=== PATIENT | female | born 1990 | race Caucasian/White ===

== ENCOUNTER 2017-05-02 22:18 | Emergency (ER) | payer OTHER ==
[~2017-05-02] VITALS: Ht 172.7 cm; Wt 64.4 kg
[2017-05-02 23:48] LABS: ASPARTATE AMINO TRANSFERASE 13 U/L (15-37); BLOOD UREA NITROGEN 11 mg/dL (7-18)
[2017-05-03 01:08] LABS: PATH.CAST-FLAG NOT PRESENT; SPERM-FLAG NOT PRESENT; SRC-FLAG NOT PRESENT; XTAL-FLAG NOT PRESENT; YLC-FLAG NOT PRESENT
[2017-05-03 01:46] VITALS: BP 114/77
== END 2017-05-03 01:47 | disposition home or self-care (01) ==
LOC: ED 05-03 01:41
DX: O20.0 Threatened abortion (principal)
CPT/HCPCS: 36415; 76801; 80053; 81001; 84702; 85025; 86901

== ENCOUNTER 2017-12-07 11:09 | Observation (INO) | payer OTHER ==
[~2017-12-07] VITALS: Ht 172.7 cm; Wt 72.2 kg
[2017-12-07] MEDS ORDERED: ONDANSETRON 2MG/ML, 2ML IVPush ONE (11:30)
[2017-12-07] MEDS ORDERED: D5%-LACTATED RINGERS 1,000 ML IV SCH (11:30)
[2017-12-07] MEDS ORDERED: LACTATED RINGERS 1,000 ML IVBOLUS ONE (11:30)
[2017-12-07] MEDS ORDERED: ONDANSETRON 2MG/ML, 2ML ONE (11:40)
[2017-12-07 11:52] LABS: BASOPHILS # (AUTO) 0.01 x10^3/uL (0-0.1); BASOPHILS % (AUTO) 0 % (0-1); EOSINOPHILS # (AUTO) 0.04 x10^3/uL (0-0.4); EOSINOPHILS % (AUTO) 0 % (1-7); LYMPHOCYTES # (AUTO) 0.57 x10^3/uL (1-3.4); LYMPHOCYTES % (AUTO) 4 % (22-44); MD NO; MEAN CORPUSCULAR HEMOGLOBIN 34.2 pg (27.0-34.8); MEAN CORPUSCULAR HGB CONC 34.2 g/dL (32.4-35.8); MEAN CORPUSCULAR VOLUME 100.1 fL (80-100); MEAN PLATELET VOLUME 8.5 fL (7.4-10.4); MONOCYTES # (AUTO) 0.62 x10^3/uL (0.2-0.8); MONOCYTES % (AUTO) 4 % (2-9); NEUTROPHILS # (AUTO) 13.94 x10^3/uL (1.8-6.8); NEUTROPHILS % (AUTO) 92 % (42-75); PLATELET COUNT 166 x10^3/uL (130-400); RED BLOOD COUNT 4.12 x10^6/uL (3.82-5.3); RED CELL DISTRIBUTION WIDTH 12.9 % (9.6-15.2)
[2017-12-07 11:53] VITALS: BP 112/57
[2017-12-07 11:57] LABS: MICROSCOPIC NOT IND
[2017-12-07 12:01] LABS: ALANINE AMINOTRANSFERASE 18 U/L (12-78); ALBUMIN 3.1 g/dL (3.4-5.0); ANION GAP 8 mmol/L (5-15); CALCIUM 8.3 mg/dL (8.5-10.1); CHLORIDE 109 mmol/L (98-107); CREATININE 0.52 mg/dL (0.55-1.02)
[2017-12-07 12:02] LABS: ALKALINE PHOSPHATASE 70 U/L (45-117); BILIRUBIN,TOTAL 0.3 mg/dL (0.2-1.0); TOTAL PROTEIN 6.9 g/dL (6.4-8.2)
[2017-12-07 12:06] LABS: CULTURE INDICATED? NO
[2017-12-07] MEDS ORDERED: ACYC-114 PO (12:09)
[2017-12-07] MEDS ORDERED: METOCLOPRAMIDE 5 MG/ML, 2ML IVPush ONE (13:30)
[2017-12-07] MEDS ORDERED: METOCLOPRAMIDE 5 MG/ML, 2ML ONE (13:33)
[2017-12-07 14:22] LABS: RAPID INFLUENZA A Negative (Negative); RAPID INFLUENZA B Negative (Negative)
== END 2017-12-07 16:30 | disposition home or self-care (01) ==
LOC: LDIP 11:09
PROVIDERS: ADMIT Obstetrics & Gynecology; ATTEND Obstetrics & Gynecology
DX: O26.893 Other specified pregnancy related conditions, third trimester (principal); R19.7 Diarrhea, unspecified; O34.219 Maternal care for unspecified type scar from previous cesarean delivery; O45.93 Premature separation of placenta, unspecified, third trimester; O99.343 Other mental disorders complicating pregnancy, third trimester; O99.89 Other specified diseases and conditions complicating pregnancy, childbirth and the puerperium; Z86.32 Personal history of gestational diabetes; Z14.1 Cystic fibrosis carrier; Z3A.28 28 weeks gestation of pregnancy
CPT/HCPCS: 36415; 80053; 81003; 85025; 87400; 93005; 96361; 96374; 96375; G0378; J2405; J2765; J7120; 96360; 96366; J7121

== ENCOUNTER 2018-01-13 10:35 | Outpatient (CLI) | payer OTHER ==
[~2018-01-13] VITALS: Ht 172.7 cm; Wt 75.5 kg
[~2018-01-13 10:35] MED LIST: ACYC-114 PO
[2018-01-13 10:45] VITALS: BP 118/70
[2018-01-13 11:54] LABS: MICROSCOPIC NOT IND
[2018-01-13 12:00] LABS: AMNISURE NEGATIVE (NEGATIVE)
[2018-01-13] MEDS ORDERED: PREN1TAB60 PO (12:22)
== END 2018-01-13 12:45 | disposition home or self-care (01) ==
LOC: LDOP 10:35
PROVIDERS: ATTEND Obstetrics & Gynecology
DX: O26.893 Other specified pregnancy related conditions, third trimester (principal); R10.9 Unspecified abdominal pain; Z3A.33 33 weeks gestation of pregnancy
CPT/HCPCS: 36415; 59025; 81003; 82731; 84112; 87086; 99201; G0463

== ENCOUNTER 2018-02-22 07:27 | Inpatient (IN) | payer OTHER ==
[~2018-02-22] VITALS: Ht 172.7 cm; Wt 80.0 kg
[~2018-02-22 07:27] MED LIST changes: +PREN1TAB60 PO
[2018-02-22] MEDS ORDERED: OXYTOCIN 30U/ 0.9% NaCL 500ML 500 ML IV SCH (07:58)
[2018-02-22] MEDS ORDERED: LACTATED RINGERS 1,000 ML IV SCH ×3 (07:58→11:29)
[2018-02-22] MEDS ORDERED: METOCLOPRAMIDE 5 MG/ML, 2ML ONE (08:00)
[2018-02-22] MEDS ORDERED: OXYTOCIN 30U/ 0.9% NaCL 500ML 500 ML ONE (08:00)
[2018-02-22] MEDS ORDERED: SODIUM CITRATE/CITRIC ACID 30 ML UDC PO ONE (08:00)
[2018-02-22] MEDS ORDERED: SODIUM CITRATE/CITRIC ACID 30 ML UDC ONE ×2 (08:00→08:01)
[2018-02-22] MEDS ORDERED: LACTATED RINGERS 1,000 ML IVBOLUS ONE (08:00)
[2018-02-22] MEDS ORDERED: NEWBORN KIT ONE (08:00)
[2018-02-22] MEDS ORDERED: METOCLOPRAMIDE 5 MG/ML, 2ML IV ONE (08:00)
[2018-02-22 08:28] VITALS: BP 119/77
[2018-02-22 08:28] LABS: BASOPHILS # (AUTO) 0.03 x10^3/uL (0-0.1); BASOPHILS % (AUTO) 0 % (0-1); EOSINOPHILS # (AUTO) 0.05 x10^3/uL (0-0.4); EOSINOPHILS % (AUTO) 1 % (1-7); LYMPHOCYTES # (AUTO) 1.57 x10^3/uL (1-3.4); LYMPHOCYTES % (AUTO) 17 % (22-44); MD NO; MEAN CORPUSCULAR HEMOGLOBIN 33.8 pg (27.0-34.8); MEAN CORPUSCULAR VOLUME 99.5 fL (80-100); MEAN PLATELET VOLUME 9.2 fL (7.4-10.4); MONOCYTES # (AUTO) 0.69 x10^3/uL (0.2-0.8); MONOCYTES % (AUTO) 7 % (2-9); NEUTROPHILS % (AUTO) 75 % (42-75); PLATELET COUNT 171 x10^3/uL (130-400); RED BLOOD COUNT 3.97 x10^6/uL (3.82-5.3)
[2018-02-22] MEDS ORDERED: morphine SULFATE/PF 1 MG/ML, 10ML ONE (10:03)
[2018-02-22] MEDS ORDERED: BUPIVACAINE/PF 0.5% ONE (10:06)
[2018-02-22] MEDS ORDERED: FENTANYL PF 100 MCG/2ML ONE ×2 (10:30→10:45)
[2018-02-22] MEDS ORDERED: MIDAZOLAM 1 MG/ML, 2ML ONE (10:30)
[2018-02-22] MEDS ORDERED: PROPOFOL 10 MG/ML, 20ML ONE (10:35)
[2018-02-22] MEDS ORDERED: ONDANSETRON 2MG/ML, 2ML ONE (10:40)
[2018-02-22] MEDS ORDERED: OXYTOCIN 10 UNITS/ML, 1ML ONE (10:40)
[2018-02-22] MEDS ORDERED: DEXAMETHASONE 4 MG/ML, 1ML ONE (10:40)
[2018-02-22] MEDS ORDERED: KETOROLAC 30 MG/1 ML ONE (10:40)
[2018-02-22] MEDS: OXYTOCIN 30U/ 0.9% NaCL 500ML 500 ML IV SCH ×2 (11:29→21:29)
[2018-02-22] MEDS: LACTATED RINGERS 1,000 ML IV SCH ×2 (11:29→19:29)
[2018-02-22] MEDS ORDERED: ONDANSETRON 2MG/ML, 2ML IV PRN (11:30)
[2018-02-22] MEDS: PRENATAL VIT/IRON/FA 1 EACH TABLET PO SCH (11:30)
[2018-02-22] MEDS ORDERED: BISACODYL 10 MG SUPP PR PRN (11:30)
[2018-02-22] MEDS ORDERED: METOCLOPRAMIDE 5 MG/ML, 2ML IV PRN (11:30)
[2018-02-22] MEDS ORDERED: MISOPROSTOL 200 MCG TABLET PR PRN (11:30)
[2018-02-22] MEDS ORDERED: KETOROLAC 30 MG/1 ML IV SCH (11:30)
[2018-02-22] MEDS ORDERED: ACETAMINOPHEN 325 MG TABLET PO PRN (11:30)
[2018-02-22] MEDS ORDERED: CARBOPROST TROMETHAMINE 250 MCG/ML, 1ML IM PRN (11:30)
[2018-02-22] MEDS ORDERED: MISOPROSTOL 200 MCG TABLET SL PRN (11:30)
[2018-02-22] MEDS ORDERED: OXYcodone IR 5MG TABLET PO PRN (11:30)
[2018-02-22] MEDS ORDERED: IBUPROFEN 600 MG TABLET PO PRN (11:30)
[2018-02-22] MEDS ORDERED: METHYLERGONOVINE 0.2 MG/ML IM PRN (11:30)
[2018-02-22] MEDS ORDERED: morphine SULFATE 10 MG/ML, 1ML IVPush PRN (11:30)
[2018-02-22] MEDS ORDERED: MEPERIDINE/PF 50 MG/ML IM PRN (11:30)
[2018-02-22] MEDS ORDERED: ONDANSETRON 2MG/ML, 2ML IVPush PRN (12:00)
[2018-02-22] MEDS ORDERED: MORPHINE SULFATE 4 MG/ML, 1ML IV PRN (12:00)
[2018-02-22] MEDS ORDERED: NO SEDATIVES, TRANQUILIZERS OR ANTIEMETICS XX SCH (12:00)
[2018-02-22] MEDS ORDERED: DIPHENHYDRAMINE 50 MG/ML, 1ML IV PRN (12:00)
[2018-02-22] MEDS ORDERED: NALOXONE 0.4 MG/ML, 1ML IV PRN (12:00)
[2018-02-22] MEDS ORDERED: EPHEDRINE 50 MG/ML, 1ML IVPush PRN (12:00)
[2018-02-22 13:10] VITALS: BP 137/79
[2018-02-22 17:00] VITALS: BP 117/76
[2018-02-22] MEDS: KETOROLAC 30 MG/1 ML IVPush SCH (18:02)
[2018-02-22 18:51] LABS: MEAN CORPUSCULAR HEMOGLOBIN 34.3 pg (27.0-34.8); MEAN CORPUSCULAR HGB CONC 33.9 g/dL (32.4-35.8); MEAN PLATELET VOLUME 9.2 fL (7.4-10.4); PLATELET COUNT 143 x10^3/uL (130-400); RED BLOOD COUNT 3.63 x10^6/uL (3.82-5.3); RED CELL DISTRIBUTION WIDTH 12.7 % (9.6-15.2)
[2018-02-22 19:15] VITALS: BP 121/71
[2018-02-22 19:17] LABS: BASOPHILS % (AUTO) 0 % (0-1); EOSINOPHILS % (AUTO) 0 % (1-7); LYMPHOCYTES # (AUTO) 0.97 x10^3/uL (1-3.4); LYMPHOCYTES % (AUTO) 6 % (22-44); MD SCAN; MONOCYTES # (AUTO) 0.62 x10^3/uL (0.2-0.8); MONOCYTES % (AUTO) 4 % (2-9); NEUTROPHILS % (AUTO) 90 % (42-75)
[2018-02-22] MEDS: ACYCLOVIR 200 MG CAPSULE HOMEMEDPO SCH (21:00)
[2018-02-23] MEDS: KETOROLAC 30 MG/1 ML IVPush SCH ×2 (00:03→05:40)
[2018-02-23 00:07] VITALS: BP 126/74
[2018-02-23] MEDS: LACTATED RINGERS 1,000 ML IV SCH ×3 (03:29→19:29)
[2018-02-23 03:58] VITALS: BP 113/72
[2018-02-23] MEDS: OXYcodone/APAP 5/325MG TABLET PO PRN ×4 (05:40→18:37)
[2018-02-23] MEDS: OXYTOCIN 30U/ 0.9% NaCL 500ML 500 ML IV SCH ×2 (07:29→16:06)
[2018-02-23 07:50] VITALS: BP 119/70
[2018-02-23] MEDS: PRENATAL VIT/IRON/FA 1 EACH TABLET PO SCH (09:00)
[2018-02-23] MEDS: DOCUSATE 100 MG CAPSULE PO PRN ×2 (09:31→22:26)
[2018-02-23 12:12] VITALS: BP 132/81
[2018-02-23] MEDS: IBUPROFEN 600 MG TABLET PO PRN ×2 (12:22→18:24)
[2018-02-23] MEDS ORDERED: IBUPROFEN 600 MG TABLET PO PRN (16:14)
[2018-02-23 19:50] VITALS: BP 121/84
[2018-02-23] MEDS: ACYCLOVIR 200 MG CAPSULE HOMEMEDPO SCH (21:00)
[2018-02-24] MEDS: IBUPROFEN 600 MG TABLET PO PRN ×4 (02:25→22:57)
[2018-02-24] MEDS: LACTATED RINGERS 1,000 ML IV SCH ×3 (03:29→19:29)
[2018-02-24] MEDS: OXYTOCIN 30U/ 0.9% NaCL 500ML 500 ML IV SCH ×3 (03:29→23:29)
[2018-02-24 07:42] VITALS: BP 118/75
[2018-02-24] MEDS: PRENATAL VIT/IRON/FA 1 EACH TABLET PO SCH (07:43)
[2018-02-24] MEDS: DOCUSATE 100 MG CAPSULE PO PRN ×2 (07:44→21:53)
[2018-02-24] MEDS: OXYcodone/APAP 5/325MG TABLET PO PRN ×4 (07:44→21:53)
[2018-02-24] MEDS: ACYCLOVIR 200 MG CAPSULE HOMEMEDPO SCH (21:00)
[2018-02-24 21:45] VITALS: BP 132/78
[2018-02-25] MEDS: OXYcodone/APAP 5/325MG TABLET PO PRN ×4 (02:53→18:05)
[2018-02-25] MEDS: LACTATED RINGERS 1,000 ML IV SCH ×3 (03:22→19:29)
[2018-02-25] MEDS: IBUPROFEN 600 MG TABLET PO PRN ×3 (06:30→21:13)
[2018-02-25 06:48] VITALS: BP 138/82
[2018-02-25] MEDS: DOCUSATE 100 MG CAPSULE PO PRN ×2 (07:30→21:13)
[2018-02-25] MEDS: PRENATAL VIT/IRON/FA 1 EACH TABLET PO SCH (08:54)
[2018-02-25] MEDS: OXYTOCIN 30U/ 0.9% NaCL 500ML 500 ML IV SCH ×2 (09:29→19:29)
[2018-02-25 21:00] VITALS: BP 146/89
[2018-02-25] MEDS: ACYCLOVIR 200 MG CAPSULE HOMEMEDPO SCH (21:00)
[2018-02-26] MEDS: OXYcodone/APAP 5/325MG TABLET PO PRN ×2 (01:34→09:18)
[2018-02-26 01:57] VITALS: BP 130/85
[2018-02-26] MEDS: LACTATED RINGERS 1,000 ML IV SCH (02:50)
[2018-02-26] MEDS: OXYTOCIN 30U/ 0.9% NaCL 500ML 500 ML IV SCH (02:50)
[2018-02-26] MEDS: IBUPROFEN 600 MG TABLET PO PRN (04:29)
[2018-02-26] MEDS: DOCUSATE 100 MG CAPSULE PO PRN (07:48)
[2018-02-26] MEDS: PRENATAL VIT/IRON/FA 1 EACH TABLET PO SCH (07:48)
[2018-02-26 08:00] VITALS: BP 129/84
[2018-02-26] MEDS ORDERED: DOCU-131 PO (13:34)
[2018-02-26] MEDS ORDERED: OXYC-302 PO (13:35)
[2018-02-26] MEDS ORDERED: IBUP-1222 PO (13:35)
== END 2018-02-26 15:20 | disposition home or self-care (01) | DRG 766 ==
LOC: LDIP 07:55 → 2NW 12:56
PROVIDERS: ADMIT Obstetrics & Gynecology; ATTEND Obstetrics & Gynecology
PROC: 10D00Z1 Extraction of Products of Conception, Low, Open Approach (ICD-10-PCS; principal; 2018-02-22)
DX: O34.211 Maternal care for low transverse scar from previous cesarean delivery (principal); Z37.0 Single live birth; Z3A.39 39 weeks gestation of pregnancy
CPT/HCPCS: 36415; 85025; 86850; 86900; J1100; J1885; J2250; J2274; J2405; J2704; J3010; J3490; J2590; J2765; J7120

== ENCOUNTER 2019-09-25 11:36 | Inpatient (IN) | payer OTHER ==
[~2019-09-25] VITALS: Ht 170.2 cm; Wt 110.0 kg
[~2019-09-25 11:36] MED LIST changes: +DOCU-131 PO; +IBUP-1222 PO; +OXYC-302 PO
[2019-09-25 12:10] VITALS: BP 116/76
[2019-09-25] MEDS: LACTATED RINGERS 1,000 ML IV PRN (12:10)
[2019-09-25 12:11] LABS: BASOPHILS # (AUTO) 0.02 x10^3/uL (0-0.1); BASOPHILS % (AUTO) 0 % (0-1); EOSINOPHILS # (AUTO) 0.07 x10^3/uL (0-0.4); EOSINOPHILS % (AUTO) 1 % (1-7); LYMPHOCYTES # (AUTO) 1.48 x10^3/uL (1-3.4); LYMPHOCYTES % (AUTO) 25 % (22-44); MD NO; MEAN CORPUSCULAR HEMOGLOBIN 33.8 pg (27.0-34.8); MEAN CORPUSCULAR HGB CONC 33.9 g/dL (32.4-35.8); MEAN CORPUSCULAR VOLUME 99.8 fL (80-100); MEAN PLATELET VOLUME 8.8 fL (7.4-10.4); MONOCYTES # (AUTO) 0.41 x10^3/uL (0.2-0.8); MONOCYTES % (AUTO) 7 % (2-9); NEUTROPHILS # (AUTO) 4.03 x10^3/uL (1.8-6.8); NEUTROPHILS % (AUTO) 67 % (42-75); PLATELET COUNT 183 x10^3/uL (130-400); RED BLOOD COUNT 4.12 x10^6/uL (3.82-5.3); RED CELL DISTRIBUTION WIDTH 12.1 % (9.6-15.2)
[2019-09-25 12:19] LABS: CHLORIDE 111 mmol/L (98-107)
[2019-09-25 12:28] LABS: ALANINE AMINOTRANSFERASE 14 U/L (12-78); ALKALINE PHOSPHATASE 74 U/L (45-117); ANION GAP 6 mmol/L (5-15); BILIRUBIN,TOTAL 0.3 mg/dL (0.2-1.0); CALCIUM 8.9 mg/dL (8.5-10.1); CREATININE 0.69 mg/dL (0.55-1.02); TOTAL PROTEIN 6.9 g/dL (6.4-8.2)
[2019-09-25] MEDS ORDERED: BETAMETHASONE 6 MG/ML, 5ML IM ONE (12:32)
[2019-09-25] MEDS: BETAMETHASONE 6 MG/ML, 5ML IM SCH (12:38)
[2019-09-25 13:38] LABS: MICROSCOPIC NOT IND
[2019-09-25 13:42] LABS: CULTURE INDICATED? NO
[2019-09-25] MEDS: ACYCLOVIR 400 MG TABLET PO SCH (20:54)
[2019-09-26] MEDS: LACTATED RINGERS 1,000 ML IV PRN (07:53)
[2019-09-26] MEDS ORDERED: DOCUSATE 100 MG CAPSULE ONE (08:13)
[2019-09-26] MEDS ORDERED: PRENATAL VIT/IRON/FA 1 EACH TABLET ONE (08:13)
[2019-09-26] MEDS: PRENATAL VIT/IRON/FA 1 EACH TABLET PO SCH (08:19)
[2019-09-26] MEDS: DOCUSATE 100 MG CAPSULE PO SCH (08:19)
[2019-09-26] MEDS: ACYCLOVIR 400 MG TABLET PO SCH ×2 (08:19→21:09)
[2019-09-26 08:30] VITALS: BP 143/77
[2019-09-26 11:30] VITALS: BP 118/74
[2019-09-26] MEDS: BETAMETHASONE 6 MG/ML, 5ML IM SCH (13:08)
[2019-09-27] MEDS ORDERED: DOCUSATE 100 MG CAPSULE ONE ×2 (08:26→09:37)
[2019-09-27] MEDS ORDERED: PRENATAL VIT/IRON/FA 1 EACH TABLET ONE ×2 (08:27→09:36)
[2019-09-27] MEDS: DOCUSATE 100 MG CAPSULE PO SCH (09:00)
[2019-09-27] MEDS: PRENATAL VIT/IRON/FA 1 EACH TABLET PO SCH (09:00)
[2019-09-27] MEDS: ACYCLOVIR 400 MG TABLET PO SCH ×2 (09:00→20:59)
[2019-09-27 11:35] VITALS: BP 127/82
[2019-09-27] MEDS ORDERED: DOCO100C PO (11:39)
[2019-09-28 08:03] VITALS: BP 117/77
[2019-09-28] MEDS ORDERED: ACYCLOVIR 400 MG TABLET ONE ×2 (08:40→20:56)
[2019-09-28] MEDS: PRENATAL VIT/IRON/FA 1 EACH TABLET PO SCH (08:44)
[2019-09-28] MEDS: ACYCLOVIR 400 MG TABLET PO SCH ×2 (08:45→21:01)
[2019-09-28] MEDS: DOCUSATE 100 MG CAPSULE PO SCH (08:45)
[2019-09-28 13:41] LABS: FERNING TEST FERNING NOT PRESENT (NEGATIVE)
[2019-09-28 20:30] VITALS: BP 112/82
[2019-09-28] MEDS ORDERED: DOCUSATE 100 MG CAPSULE ONE (20:56)
[2019-09-29] MEDS ORDERED: DOCUSATE 100 MG CAPSULE ONE (08:20)
[2019-09-29] MEDS ORDERED: ACYCLOVIR 400 MG TABLET ONE ×2 (08:20→20:46)
[2019-09-29] MEDS ORDERED: PRENATAL VIT/IRON/FA 1 EACH TABLET ONE (08:20)
[2019-09-29 08:22] VITALS: BP 111/69
[2019-09-29] MEDS: DOCUSATE 100 MG CAPSULE PO SCH (08:23)
[2019-09-29] MEDS: PRENATAL VIT/IRON/FA 1 EACH TABLET PO SCH ×3 (08:23→09:00)
[2019-09-29] MEDS: ACYCLOVIR 400 MG TABLET PO SCH ×2 (08:23→21:06)
[2019-09-29 19:30] VITALS: BP 119/77
[2019-09-30] MEDS ORDERED: DOCUSATE 100 MG CAPSULE ONE (07:38)
[2019-09-30] MEDS ORDERED: PRENATAL VIT/IRON/FA 1 EACH TABLET ONE (07:38)
[2019-09-30] MEDS ORDERED: ACYCLOVIR 400 MG TABLET ONE ×2 (07:39→20:59)
[2019-09-30] MEDS: ACYCLOVIR 400 MG TABLET PO SCH ×2 (08:11→21:01)
[2019-09-30] MEDS: PRENATAL VIT/IRON/FA 1 EACH TABLET PO SCH (08:11)
[2019-09-30] MEDS: DOCUSATE 100 MG CAPSULE PO SCH (08:12)
[2019-09-30 08:13] VITALS: BP 119/76
[2019-10-01] MEDS ORDERED: ACYCLOVIR 400 MG TABLET ONE ×2 (07:40→20:50)
[2019-10-01] MEDS ORDERED: PRENATAL VIT/IRON/FA 1 EACH TABLET ONE (07:40)
[2019-10-01] MEDS ORDERED: DOCUSATE 100 MG CAPSULE ONE (07:40)
[2019-10-01] MEDS: DOCUSATE 100 MG CAPSULE PO SCH ×2 (08:11→20:56)
[2019-10-01] MEDS: PRENATAL VIT/IRON/FA 1 EACH TABLET PO SCH ×2 (08:11→09:00)
[2019-10-01] MEDS: ACYCLOVIR 400 MG TABLET PO SCH ×2 (08:11→20:52)
[2019-10-02] MEDS ORDERED: PRENATAL VIT/IRON/FA 1 EACH TABLET ONE (08:26)
[2019-10-02] MEDS ORDERED: DOCUSATE 100 MG CAPSULE ONE (08:27)
[2019-10-02] MEDS ORDERED: ACYCLOVIR 400 MG TABLET ONE ×2 (08:27→20:14)
[2019-10-02] MEDS: PRENATAL VIT/IRON/FA 1 EACH TABLET PO SCH ×3 (08:29→09:00)
[2019-10-02] MEDS: DOCUSATE 100 MG CAPSULE PO SCH (08:29)
[2019-10-02] MEDS: ACYCLOVIR 400 MG TABLET PO SCH ×2 (08:29→20:17)
[2019-10-03] MEDS ORDERED: ACYCLOVIR 400 MG TABLET ONE ×2 (07:51→21:07)
[2019-10-03] MEDS ORDERED: PRENATAL VIT/IRON/FA 1 EACH TABLET ONE (07:52)
[2019-10-03] MEDS ORDERED: DOCUSATE 100 MG CAPSULE ONE (07:52)
[2019-10-03] MEDS: PRENATAL VIT/IRON/FA 1 EACH TABLET PO SCH ×2 (09:00→09:23)
[2019-10-03] MEDS: DOCUSATE 100 MG CAPSULE PO SCH (09:23)
[2019-10-03] MEDS: ACYCLOVIR 400 MG TABLET PO SCH ×2 (09:23→21:09)
[2019-10-03 09:48] VITALS: BP 129/81
[2019-10-03 19:21] VITALS: BP 117/71
[2019-10-04 01:04] VITALS: BP 97/56
[2019-10-04 05:21] VITALS: BP 100/58
[2019-10-04] MEDS ORDERED: DOCUSATE 100 MG CAPSULE ONE (07:53)
[2019-10-04] MEDS ORDERED: ACYCLOVIR 400 MG TABLET ONE ×2 (07:54→20:42)
[2019-10-04] MEDS ORDERED: PRENATAL VIT/IRON/FA 1 EACH TABLET ONE (07:54)
[2019-10-04] MEDS: PRENATAL VIT/IRON/FA 1 EACH TABLET PO SCH ×2 (08:58→08:59)
[2019-10-04] MEDS: ACYCLOVIR 400 MG TABLET PO SCH ×2 (08:58→20:48)
[2019-10-04] MEDS: DOCUSATE 100 MG CAPSULE PO SCH (08:58)
[2019-10-05 08:00] VITALS: BP 111/67
[2019-10-05] MEDS ORDERED: DOCUSATE 100 MG CAPSULE ONE (09:15)
[2019-10-05] MEDS ORDERED: PRENATAL VIT/IRON/FA 1 EACH TABLET ONE (09:15)
[2019-10-05] MEDS ORDERED: ACYCLOVIR 400 MG TABLET ONE ×2 (09:15→20:43)
[2019-10-05] MEDS: ACYCLOVIR 400 MG TABLET PO SCH ×2 (09:16→20:55)
[2019-10-05] MEDS: DOCUSATE 100 MG CAPSULE PO SCH (09:16)
[2019-10-05] MEDS: PRENATAL VIT/IRON/FA 1 EACH TABLET PO SCH (09:16)
[2019-10-06 08:00] VITALS: BP 114/78
[2019-10-06] MEDS ORDERED: DOCUSATE 100 MG CAPSULE ONE (08:25)
[2019-10-06] MEDS ORDERED: ACYCLOVIR 400 MG TABLET ONE ×2 (08:26→20:55)
[2019-10-06] MEDS: PRENATAL VIT/IRON/FA 1 EACH TABLET PO SCH ×3 (09:00→09:07)
[2019-10-06] MEDS: ACYCLOVIR 400 MG TABLET PO SCH ×2 (09:05→20:56)
[2019-10-06] MEDS: DOCUSATE 100 MG CAPSULE PO SCH ×2 (09:05→21:00)
[2019-10-06] MEDS ORDERED: PRENATAL VIT/IRON/FA 1 EACH TABLET ONE (09:07)
[2019-10-06 09:21] LABS: BASOPHILS # (AUTO) 0.02 x10^3/uL (0-0.1); BASOPHILS % (AUTO) 0 % (0-1); EOSINOPHILS # (AUTO) 0.05 x10^3/uL (0-0.4); EOSINOPHILS % (AUTO) 1 % (1-7); LYMPHOCYTES # (AUTO) 2.09 x10^3/uL (1-3.4); LYMPHOCYTES % (AUTO) 26 % (22-44); MD NO; MEAN CORPUSCULAR HEMOGLOBIN 33.1 pg (27.0-34.8); MEAN CORPUSCULAR HGB CONC 32.9 g/dL (32.4-35.8); MEAN CORPUSCULAR VOLUME 100.6 fL (80-100); MEAN PLATELET VOLUME 8.6 fL (7.4-10.4); MONOCYTES % (AUTO) 5 % (2-9); NEUTROPHILS # (AUTO) 5.53 x10^3/uL (1.8-6.8); NEUTROPHILS % (AUTO) 68 % (42-75); PLATELET COUNT 199 x10^3/uL (130-400); RED BLOOD COUNT 4.33 x10^6/uL (3.82-5.3); RED CELL DISTRIBUTION WIDTH 12.2 % (9.6-15.2)
[2019-10-07 09:00] VITALS: BP 120/68
[2019-10-07] MEDS: PRENATAL VIT/IRON/FA 1 EACH TABLET PO SCH ×2 (09:00)
[2019-10-07] MEDS: ACYCLOVIR 400 MG TABLET PO SCH ×2 (09:00→21:01)
[2019-10-07] MEDS ORDERED: DOCUSATE 100 MG CAPSULE ONE (13:32)
[2019-10-07] MEDS ORDERED: ACYCLOVIR 400 MG TABLET ONE ×2 (13:32→20:52)
[2019-10-07] MEDS ORDERED: PRENATAL VIT/IRON/FA 1 EACH TABLET ONE (13:32)
[2019-10-07] MEDS: DOCUSATE 100 MG CAPSULE PO SCH ×2 (13:39→20:39)
[2019-10-07 20:20] VITALS: BP 114/72
[2019-10-08 07:16] LABS: GLUCOSE, FASTING 78 mg/dL (74-106)
[2019-10-08 08:00] VITALS: BP 130/65
[2019-10-08] MEDS ORDERED: PRENATAL VIT/IRON/FA 1 EACH TABLET ONE (09:10)
[2019-10-08] MEDS ORDERED: ACYCLOVIR 400 MG TABLET ONE ×2 (09:11→21:40)
[2019-10-08] MEDS ORDERED: DOCUSATE 100 MG CAPSULE ONE ×2 (09:11→20:39)
[2019-10-08] MEDS: PRENATAL VIT/IRON/FA 1 EACH TABLET PO SCH (10:43)
[2019-10-08] MEDS: ACYCLOVIR 400 MG TABLET PO SCH (10:43)
[2019-10-08] MEDS: DOCUSATE 100 MG CAPSULE PO SCH (10:43)
[2019-10-08] MEDS ORDERED: ACETAMINOPHEN 325 MG TABLET ONE (17:33)
[2019-10-08] MEDS: ACETAMINOPHEN 650 MG SUPP PR PRN (17:38)
[2019-10-09] MEDS ORDERED: DOCUSATE 100 MG CAPSULE ONE (08:50)
[2019-10-09] MEDS ORDERED: ACYCLOVIR 400 MG TABLET ONE ×2 (08:50→20:41)
[2019-10-09] MEDS ORDERED: PRENATAL VIT/IRON/FA 1 EACH TABLET ONE (08:50)
[2019-10-09] MEDS: PRENATAL VIT/IRON/FA 1 EACH TABLET PO SCH ×3 (09:00→09:08)
[2019-10-09] MEDS: ACYCLOVIR 400 MG TABLET PO SCH ×3 (09:00→20:51)
[2019-10-09] MEDS: DOCUSATE 100 MG CAPSULE PO SCH (09:08)
[2019-10-09 19:25] VITALS: BP 134/91
[2019-10-10] MEDS ORDERED: DOCUSATE 100 MG CAPSULE ONE (08:58)
[2019-10-10] MEDS ORDERED: PRENATAL VIT/IRON/FA 1 EACH TABLET ONE (08:58)
[2019-10-10] MEDS ORDERED: ACYCLOVIR 400 MG TABLET ONE ×2 (08:59→20:38)
[2019-10-10] MEDS: ACYCLOVIR 400 MG TABLET PO SCH ×2 (09:13→20:51)
[2019-10-10] MEDS: PRENATAL VIT/IRON/FA 1 EACH TABLET PO SCH (09:13)
[2019-10-10] MEDS: DOCUSATE 100 MG CAPSULE PO SCH (09:14)
[2019-10-10 19:15] VITALS: BP 125/76
[2019-10-11] MEDS ORDERED: PRENATAL VIT/IRON/FA 1 EACH TABLET ONE (09:05)
[2019-10-11] MEDS ORDERED: ACYCLOVIR 400 MG TABLET ONE ×2 (09:05→20:45)
[2019-10-11] MEDS: PRENATAL VIT/IRON/FA 1 EACH TABLET PO SCH (09:08)
[2019-10-11] MEDS: ACYCLOVIR 400 MG TABLET PO SCH ×2 (09:08→20:47)
[2019-10-11] MEDS ORDERED: DOCUSATE 100 MG CAPSULE ONE ×2 (09:09→20:45)
[2019-10-11] MEDS: DOCUSATE 100 MG CAPSULE PO SCH ×2 (09:11→23:29)
[2019-10-11 20:00] VITALS: BP 142/78
[2019-10-11 20:22] VITALS: BP 119/80
[2019-10-12] MEDS ORDERED: CALCIUM CARBONATE 500 MG TAB.CHEW ONE (04:36)
[2019-10-12] MEDS: CALCIUM CARBONATE 500 MG TAB.CHEW PO PRN (04:43)
[2019-10-12] MEDS ORDERED: CALCIUM CARBONATE 500 MG TABLET PO PRN (05:00)
[2019-10-12 07:40] VITALS: BP 109/68
[2019-10-12] MEDS ORDERED: DOCUSATE 100 MG CAPSULE ONE (09:04)
[2019-10-12] MEDS ORDERED: PRENATAL VIT/IRON/FA 1 EACH TABLET ONE (09:04)
[2019-10-12] MEDS ORDERED: ACYCLOVIR 400 MG TABLET ONE ×2 (09:05→20:03)
[2019-10-12] MEDS: DOCUSATE 100 MG CAPSULE PO SCH (09:08)
[2019-10-12] MEDS: ACYCLOVIR 400 MG TABLET PO SCH ×2 (09:09→21:08)
[2019-10-12] MEDS: PRENATAL VIT/IRON/FA 1 EACH TABLET PO SCH (09:09)
[2019-10-12 12:00] VITALS: BP 114/72
[2019-10-12 19:53] VITALS: BP 115/74
[2019-10-13 08:23] VITALS: BP 117/77
[2019-10-13] MEDS ORDERED: PRENATAL VIT/IRON/FA 1 EACH TABLET ONE (10:13)
[2019-10-13] MEDS ORDERED: ACYCLOVIR 400 MG TABLET ONE ×2 (10:14→21:09)
[2019-10-13] MEDS ORDERED: DOCUSATE 100 MG CAPSULE ONE (10:14)
[2019-10-13] MEDS: DOCUSATE 100 MG CAPSULE PO SCH (10:16)
[2019-10-13] MEDS: ACYCLOVIR 400 MG TABLET PO SCH ×2 (10:16→21:11)
[2019-10-13] MEDS: PRENATAL VIT/IRON/FA 1 EACH TABLET PO SCH (10:16)
[2019-10-13 19:25] VITALS: BP 134/81
[2019-10-14] MEDS ORDERED: DOCUSATE 100 MG CAPSULE ONE ×2 (08:53→20:56)
[2019-10-14] MEDS ORDERED: PRENATAL VIT/IRON/FA 1 EACH TABLET ONE (08:53)
[2019-10-14] MEDS ORDERED: ACYCLOVIR 400 MG TABLET ONE ×2 (08:54→20:56)
[2019-10-14] MEDS: PRENATAL VIT/IRON/FA 1 EACH TABLET PO SCH (08:57)
[2019-10-14] MEDS: ACYCLOVIR 400 MG TABLET PO SCH ×2 (08:57→20:57)
[2019-10-14] MEDS: DOCUSATE 100 MG CAPSULE PO SCH ×2 (08:57→20:57)
[2019-10-15] MEDS ORDERED: PRENATAL VIT/IRON/FA 1 EACH TABLET ONE (08:46)
[2019-10-15] MEDS ORDERED: DOCUSATE 100 MG CAPSULE ONE ×2 (08:46→20:56)
[2019-10-15] MEDS ORDERED: ACYCLOVIR 400 MG TABLET ONE ×2 (08:47→20:56)
[2019-10-15 08:55] VITALS: BP 106/71
[2019-10-15] MEDS: ACYCLOVIR 400 MG TABLET PO SCH ×2 (09:00→21:12)
[2019-10-15] MEDS: PRENATAL VIT/IRON/FA 1 EACH TABLET PO SCH (09:00)
[2019-10-15 21:14] VITALS: BP 125/86
[2019-10-16] MEDS ORDERED: DOCUSATE 100 MG CAPSULE ONE (08:30)
[2019-10-16] MEDS ORDERED: ACYCLOVIR 400 MG TABLET ONE ×2 (08:30→20:52)
[2019-10-16] MEDS ORDERED: PRENATAL VIT/IRON/FA 1 EACH TABLET ONE (08:30)
[2019-10-16] MEDS: PRENATAL VIT/IRON/FA 1 EACH TABLET PO SCH (08:35)
[2019-10-16 08:43] VITALS: BP 117/73
[2019-10-16] MEDS: DOCUSATE 100 MG CAPSULE PO SCH (09:00)
[2019-10-16 20:02] VITALS: BP 128/85
[2019-10-16] MEDS: ACYCLOVIR 400 MG TABLET PO SCH ×2 (20:56→21:00)
[2019-10-17] MEDS ORDERED: PRENATAL VIT/IRON/FA 1 EACH TABLET ONE (08:54)
[2019-10-17] MEDS ORDERED: DOCUSATE 100 MG CAPSULE ONE (08:54)
[2019-10-17] MEDS ORDERED: ACYCLOVIR 400 MG TABLET ONE ×2 (08:54→20:54)
[2019-10-17] MEDS: ACYCLOVIR 400 MG TABLET PO SCH ×2 (08:57→20:56)
[2019-10-17] MEDS: DOCUSATE 100 MG CAPSULE PO SCH (09:00)
[2019-10-17] MEDS: PRENATAL VIT/IRON/FA 1 EACH TABLET PO SCH ×2 (09:00→09:04)
[2019-10-17 09:05] VITALS: BP 126/72
[2019-10-17 19:57] VITALS: BP 128/78
[2019-10-18] MEDS ORDERED: PRENATAL VIT/IRON/FA 1 EACH TABLET ONE (07:58)
[2019-10-18] MEDS ORDERED: ACYCLOVIR 400 MG TABLET ONE ×2 (07:58→20:43)
[2019-10-18 08:30] VITALS: BP 115/70
[2019-10-18] MEDS: PRENATAL VIT/IRON/FA 1 EACH TABLET PO SCH (08:44)
[2019-10-18] MEDS: ACYCLOVIR 400 MG TABLET PO SCH ×2 (08:45→20:44)
[2019-10-18] MEDS: DOCUSATE 100 MG CAPSULE PO SCH (09:00)
[2019-10-18] MEDS ORDERED: ACETAMINOPHEN 325 MG TABLET ONE (15:02)
[2019-10-18] MEDS: ACETAMINOPHEN 650 MG SUPP PR PRN (15:04)
[2019-10-18 15:30] LABS: BASOPHILS # (AUTO) 0.04 x10^3/uL (0-0.1); BASOPHILS % (AUTO) 1 % (0-1); EOSINOPHILS % (AUTO) 1 % (1-7); LYMPHOCYTES # (AUTO) 2.45 x10^3/uL (1-3.4); LYMPHOCYTES % (AUTO) 31 % (22-44); MD NO; MEAN CORPUSCULAR HEMOGLOBIN 34.3 pg (27.0-34.8); MEAN CORPUSCULAR HGB CONC 33.6 g/dL (32.4-35.8); MEAN CORPUSCULAR VOLUME 101.9 fL (80-100); MONOCYTES # (AUTO) 0.54 x10^3/uL (0.2-0.8); MONOCYTES % (AUTO) 7 % (2-9); NEUTROPHILS # (AUTO) 4.79 x10^3/uL (1.8-6.8); NEUTROPHILS % (AUTO) 61 % (42-75); PLATELET COUNT 162 x10^3/uL (130-400); RED BLOOD COUNT 4.19 x10^6/uL (3.82-5.3); RED CELL DISTRIBUTION WIDTH 13.1 % (9.6-15.2)
[2019-10-18] MEDS ORDERED: MAALOX/HYOSCYAMINE/LIDOCAINE 45 ML BTL PO ONE (15:30)
[2019-10-18 15:40] LABS: ALANINE AMINOTRANSFERASE 19 U/L (12-78); ALBUMIN 2.9 g/dL (3.4-5.0); ANION GAP 4 mmol/L (5-15); CALCIUM 9.1 mg/dL (8.5-10.1); CHLORIDE 107 mmol/L (98-107); CREATININE 0.69 mg/dL (0.55-1.02)
[2019-10-18 15:41] LABS: BILIRUBIN, DIRECT < 0.1 mg/dL (0.1-0.2)
[2019-10-18 15:47] LABS: ALKALINE PHOSPHATASE 89 U/L (45-117); BILIRUBIN,TOTAL 0.2 mg/dL (0.2-1.0)
[2019-10-18 16:14] LABS: MICROSCOPIC NOT IND
[2019-10-18 16:35] LABS: PROTEIN/CREATININE RATIO,URINE < 287 (0-200); TOTAL PROTEIN,URINE RANDOM < 5 mg/dL (0-12)
[2019-10-19] MEDS ORDERED: DOCUSATE 100 MG CAPSULE ONE (07:41)
[2019-10-19] MEDS ORDERED: ACYCLOVIR 400 MG TABLET ONE ×2 (07:41→21:07)
[2019-10-19] MEDS ORDERED: PRENATAL VIT/IRON/FA 1 EACH TABLET ONE (07:41)
[2019-10-19] MEDS: PRENATAL VIT/IRON/FA 1 EACH TABLET PO SCH (07:44)
[2019-10-19] MEDS: ACYCLOVIR 400 MG TABLET PO SCH ×2 (07:45→21:15)
[2019-10-19] MEDS: DOCUSATE 100 MG CAPSULE PO SCH (08:21)
[2019-10-19 19:53] VITALS: BP 141/83
[2019-10-20] MEDS ORDERED: ACYCLOVIR 400 MG TABLET ONE ×2 (08:53→20:57)
[2019-10-20] MEDS ORDERED: PRENATAL VIT/IRON/FA 1 EACH TABLET ONE (08:53)
[2019-10-20] MEDS: ACYCLOVIR 400 MG TABLET PO SCH ×2 (08:56→21:00)
[2019-10-20] MEDS: PRENATAL VIT/IRON/FA 1 EACH TABLET PO SCH (08:56)
[2019-10-20 09:00] VITALS: BP 135/74
[2019-10-20] MEDS: DOCUSATE 100 MG CAPSULE PO SCH (09:00)
[2019-10-20 13:30] VITALS: BP 126/81
[2019-10-20 19:58] VITALS: BP 125/80
[2019-10-21 06:20] LABS: BASOPHILS # (AUTO) 0.08 x10^3/uL (0-0.1); BASOPHILS % (AUTO) 1 % (0-1); EOSINOPHILS # (AUTO) 0.17 x10^3/uL (0-0.4); EOSINOPHILS % (AUTO) 2 % (1-7); LYMPHOCYTES # (AUTO) 2.33 x10^3/uL (1-3.4); LYMPHOCYTES % (AUTO) 28 % (22-44); MD NO; MEAN CORPUSCULAR HEMOGLOBIN 34.2 pg (27.0-34.8); MEAN CORPUSCULAR HGB CONC 33.8 g/dL (32.4-35.8); MEAN CORPUSCULAR VOLUME 101.2 fL (80-100); MEAN PLATELET VOLUME 9.4 fL (7.4-10.4); MONOCYTES # (AUTO) 0.48 x10^3/uL (0.2-0.8); MONOCYTES % (AUTO) 6 % (2-9); NEUTROPHILS # (AUTO) 5.16 x10^3/uL (1.8-6.8); NEUTROPHILS % (AUTO) 63 % (42-75); PLATELET COUNT 159 x10^3/uL (130-400); RED BLOOD COUNT 4.08 x10^6/uL (3.82-5.3); RED CELL DISTRIBUTION WIDTH 12.7 % (9.6-15.2)
[2019-10-21 06:32] LABS: CHLORIDE 108 mmol/L (98-107)
[2019-10-21 06:41] LABS: ALANINE AMINOTRANSFERASE 24 U/L (12-78); ALBUMIN 2.8 g/dL (3.4-5.0); ALKALINE PHOSPHATASE 78 U/L (45-117); BILIRUBIN,TOTAL 0.2 mg/dL (0.2-1.0); CALCIUM 8.5 mg/dL (8.5-10.1); CREATININE 0.67 mg/dL (0.55-1.02); TOTAL PROTEIN 6.5 g/dL (6.4-8.2)
[2019-10-21 06:48] LABS: ANION GAP 6 mmol/L (5-15)
[2019-10-21] MEDS: DOCUSATE 100 MG CAPSULE PO SCH (09:00)
[2019-10-21 09:30] VITALS: BP 101/61
[2019-10-21] MEDS ORDERED: ACYCLOVIR 400 MG TABLET ONE ×2 (10:00→21:21)
[2019-10-21] MEDS ORDERED: PRENATAL VIT/IRON/FA 1 EACH TABLET ONE (10:00)
[2019-10-21] MEDS: PRENATAL VIT/IRON/FA 1 EACH TABLET PO SCH (10:04)
[2019-10-21] MEDS: ACYCLOVIR 400 MG TABLET PO SCH ×2 (10:04→21:23)
[2019-10-21] MEDS ORDERED: CALCIUM CARBONATE 500 MG TAB.CHEW ONE (14:20)
[2019-10-21] MEDS: CALCIUM CARBONATE 500 MG TAB.CHEW PO PRN (14:21)
[2019-10-22 09:00] VITALS: BP 108/70
[2019-10-22] MEDS ORDERED: PRENATAL VIT/IRON/FA 1 EACH TABLET ONE (10:07)
[2019-10-22] MEDS ORDERED: ACYCLOVIR 400 MG TABLET ONE ×2 (10:07→21:05)
[2019-10-22] MEDS: PRENATAL VIT/IRON/FA 1 EACH TABLET PO SCH (10:11)
[2019-10-22] MEDS: ACYCLOVIR 400 MG TABLET PO SCH ×2 (10:11→21:06)
[2019-10-22 15:00] VITALS: BP 109/69
[2019-10-22 19:24] VITALS: BP 111/73
[2019-10-22] MEDS: DOCUSATE 100 MG CAPSULE PO SCH (21:00)
[2019-10-23] MEDS: DOCUSATE 100 MG CAPSULE PO SCH (09:00)
[2019-10-23] MEDS ORDERED: PRENATAL VIT/IRON/FA 1 EACH TABLET ONE (09:14)
[2019-10-23] MEDS ORDERED: ACYCLOVIR 400 MG TABLET ONE ×2 (09:14→20:58)
[2019-10-23] MEDS: ACYCLOVIR 400 MG TABLET PO SCH ×2 (09:24→21:00)
[2019-10-23] MEDS: PRENATAL VIT/IRON/FA 1 EACH TABLET PO SCH (09:24)
[2019-10-24 06:10] LABS: BASOPHILS # (AUTO) 0.03 x10^3/uL (0-0.1); BASOPHILS % (AUTO) 0 % (0-1); EOSINOPHILS # (AUTO) 0.16 x10^3/uL (0-0.4); EOSINOPHILS % (AUTO) 2 % (1-7); LYMPHOCYTES # (AUTO) 2.04 x10^3/uL (1-3.4); LYMPHOCYTES % (AUTO) 27 % (22-44); MD NO; MEAN CORPUSCULAR HEMOGLOBIN 33.9 pg (27.0-34.8); MEAN CORPUSCULAR HGB CONC 33.9 g/dL (32.4-35.8); MEAN PLATELET VOLUME 8.8 fL (7.4-10.4); MONOCYTES # (AUTO) 0.48 x10^3/uL (0.2-0.8); MONOCYTES % (AUTO) 6 % (2-9); NEUTROPHILS % (AUTO) 64 % (42-75); PLATELET COUNT 161 x10^3/uL (130-400); RED BLOOD COUNT 4.06 x10^6/uL (3.82-5.3); RED CELL DISTRIBUTION WIDTH 12.9 % (9.6-15.2)
[2019-10-24 06:19] LABS: CHLORIDE 107 mmol/L (98-107)
[2019-10-24 06:27] LABS: ALANINE AMINOTRANSFERASE 18 U/L (12-78); ALBUMIN 2.7 g/dL (3.4-5.0); ALKALINE PHOSPHATASE 79 U/L (45-117); ANION GAP 5 mmol/L (5-15); BILIRUBIN,TOTAL 0.5 mg/dL (0.2-1.0); CALCIUM 8.5 mg/dL (8.5-10.1); CREATININE 0.53 mg/dL (0.55-1.02); TOTAL PROTEIN 6.6 g/dL (6.4-8.2)
[2019-10-24] MEDS ORDERED: PRENATAL VIT/IRON/FA 1 EACH TABLET ONE (08:56)
[2019-10-24] MEDS ORDERED: ACYCLOVIR 400 MG TABLET ONE ×2 (08:58→20:51)
[2019-10-24] MEDS: PRENATAL VIT/IRON/FA 1 EACH TABLET PO SCH (08:59)
[2019-10-24] MEDS: ACYCLOVIR 400 MG TABLET PO SCH ×2 (08:59→20:53)
[2019-10-24] MEDS: DOCUSATE 100 MG CAPSULE PO SCH (09:00)
[2019-10-25] MEDS ORDERED: PRENATAL VIT/IRON/FA 1 EACH TABLET ONE (07:59)
[2019-10-25] MEDS ORDERED: ACYCLOVIR 400 MG TABLET ONE ×2 (08:00→21:15)
[2019-10-25] MEDS: DOCUSATE 100 MG CAPSULE PO SCH (09:00)
[2019-10-25] MEDS ORDERED: MISOPROSTOL 200 MCG TABLET ONE (09:05)
[2019-10-25] MEDS ORDERED: LIDOCAINE 1%, 20ML ONE (09:05)
[2019-10-25 10:30] VITALS: BP 119/72
[2019-10-25] MEDS: ACYCLOVIR 400 MG TABLET PO SCH ×2 (10:30→21:18)
[2019-10-25] MEDS: PRENATAL VIT/IRON/FA 1 EACH TABLET PO SCH (10:30)
[2019-10-25 19:00] VITALS: BP 112/64
[2019-10-25] MEDS ORDERED: CALCIUM CARBONATE 500 MG TAB.CHEW ONE (21:17)
[2019-10-25] MEDS: CALCIUM CARBONATE 500 MG TAB.CHEW PO PRN (21:18)
[2019-10-26] MEDS ORDERED: PRENATAL VIT/IRON/FA 1 EACH TABLET ONE (08:56)
[2019-10-26] MEDS ORDERED: ACYCLOVIR 400 MG TABLET ONE ×2 (08:56→21:03)
[2019-10-26] MEDS: DOCUSATE 100 MG CAPSULE PO SCH (08:57)
[2019-10-26] MEDS: ACYCLOVIR 400 MG TABLET PO SCH ×2 (09:00→21:05)
[2019-10-26] MEDS: PRENATAL VIT/IRON/FA 1 EACH TABLET PO SCH (09:00)
[2019-10-26] MEDS ORDERED: ACETAMINOPHEN 325 MG TABLET ONE (13:59)
[2019-10-26] MEDS: ACETAMINOPHEN 650 MG SUPP PR PRN (14:01)
[2019-10-27 05:35] LABS: BASOPHILS # (AUTO) 0.03 x10^3/uL (0-0.1); BASOPHILS % (AUTO) 0 % (0-1); EOSINOPHILS # (AUTO) 0.22 x10^3/uL (0-0.4); EOSINOPHILS % (AUTO) 3 % (1-7); LYMPHOCYTES # (AUTO) 2.42 x10^3/uL (1-3.4); LYMPHOCYTES % (AUTO) 30 % (22-44); MD NO; MEAN CORPUSCULAR HEMOGLOBIN 33.7 pg (27.0-34.8); MEAN CORPUSCULAR HGB CONC 33.1 g/dL (32.4-35.8); MEAN PLATELET VOLUME 9.1 fL (7.4-10.4); MONOCYTES # (AUTO) 0.64 x10^3/uL (0.2-0.8); MONOCYTES % (AUTO) 8 % (2-9); NEUTROPHILS # (AUTO) 4.87 x10^3/uL (1.8-6.8); NEUTROPHILS % (AUTO) 60 % (42-75); PLATELET COUNT 144 x10^3/uL (130-400); RED BLOOD COUNT 4.02 x10^6/uL (3.82-5.3); RED CELL DISTRIBUTION WIDTH 12.7 % (9.6-15.2)
[2019-10-27 05:45] LABS: ALBUMIN 2.7 g/dL (3.4-5.0); CALCIUM 8.5 mg/dL (8.5-10.1); CHLORIDE 109 mmol/L (98-107)
[2019-10-27 05:50] LABS: ALANINE AMINOTRANSFERASE 23 U/L (12-78); ALKALINE PHOSPHATASE 81 U/L (45-117); ANION GAP 5 mmol/L (5-15); BILIRUBIN,TOTAL 0.2 mg/dL (0.2-1.0); CREATININE 0.62 mg/dL (0.55-1.02); TOTAL PROTEIN 6.2 g/dL (6.4-8.2)
[2019-10-27] MEDS ORDERED: ACYCLOVIR 400 MG TABLET ONE ×2 (08:55→20:54)
[2019-10-27] MEDS ORDERED: DOCUSATE 100 MG CAPSULE ONE (08:55)
[2019-10-27] MEDS ORDERED: PRENATAL VIT/IRON/FA 1 EACH TABLET ONE (08:55)
[2019-10-27] MEDS: PRENATAL VIT/IRON/FA 1 EACH TABLET PO SCH (09:06)
[2019-10-27] MEDS: ACYCLOVIR 400 MG TABLET PO SCH ×2 (09:06→20:55)
[2019-10-27 16:01] LABS: PROTEIN/CREATININE RATIO,URINE < 331 (0-200); TOTAL PROTEIN,URINE RANDOM < 5 mg/dL (0-12)
[2019-10-27] MEDS: DOCUSATE 100 MG CAPSULE PO SCH (21:00)
[2019-10-28] MEDS ORDERED: PRENATAL VIT/IRON/FA 1 EACH TABLET ONE (08:02)
[2019-10-28] MEDS ORDERED: ACYCLOVIR 400 MG TABLET ONE ×2 (08:03→21:01)
[2019-10-28] MEDS: PRENATAL VIT/IRON/FA 1 EACH TABLET PO SCH (08:05)
[2019-10-28] MEDS: ACYCLOVIR 400 MG TABLET PO SCH ×2 (08:05→21:03)
[2019-10-28] MEDS: DOCUSATE 100 MG CAPSULE PO SCH (09:00)
[2019-10-28 18:55] LABS: TOTAL VOLUME 24HRS,URINE 4300 mL
[2019-10-28 19:08] LABS: TOTAL PROTEIN 24HR,URINE 215 mg/24hrs (0-149)
[2019-10-29 08:09] VITALS: BP 113/79
[2019-10-29] MEDS ORDERED: PRENATAL VIT/IRON/FA 1 EACH TABLET ONE (08:18)
[2019-10-29] MEDS ORDERED: ACYCLOVIR 400 MG TABLET ONE ×2 (08:19→20:50)
[2019-10-29] MEDS: DOCUSATE 100 MG CAPSULE PO SCH (09:00)
[2019-10-29] MEDS: PRENATAL VIT/IRON/FA 1 EACH TABLET PO SCH (09:00)
[2019-10-29] MEDS: ACYCLOVIR 400 MG TABLET PO SCH ×2 (20:52→21:00)
[2019-10-30 06:41] LABS: BASOPHILS # (AUTO) 0.03 x10^3/uL (0-0.1); BASOPHILS % (AUTO) 0 % (0-1); EOSINOPHILS # (AUTO) 0.13 x10^3/uL (0-0.4); EOSINOPHILS % (AUTO) 2 % (1-7); LYMPHOCYTES % (AUTO) 24 % (22-44); MD NO; MEAN CORPUSCULAR HEMOGLOBIN 33.8 pg (27.0-34.8); MEAN CORPUSCULAR HGB CONC 33.8 g/dL (32.4-35.8); MEAN CORPUSCULAR VOLUME 99.8 fL (80-100); MEAN PLATELET VOLUME 8.7 fL (7.4-10.4); MONOCYTES # (AUTO) 0.48 x10^3/uL (0.2-0.8); MONOCYTES % (AUTO) 6 % (2-9); NEUTROPHILS # (AUTO) 5.31 x10^3/uL (1.8-6.8); NEUTROPHILS % (AUTO) 68 % (42-75); PLATELET COUNT 154 x10^3/uL (130-400); RED BLOOD COUNT 4.13 x10^6/uL (3.82-5.3)
[2019-10-30 06:52] LABS: CHLORIDE 106 mmol/L (98-107)
[2019-10-30 06:59] LABS: ALANINE AMINOTRANSFERASE 39 U/L (12-78); ALBUMIN 2.8 g/dL (3.4-5.0); ALKALINE PHOSPHATASE 83 U/L (45-117); ANION GAP 8 mmol/L (5-15); BILIRUBIN,TOTAL 0.2 mg/dL (0.2-1.0); CALCIUM 8.5 mg/dL (8.5-10.1); CREATININE 0.61 mg/dL (0.55-1.02); TOTAL PROTEIN 6.6 g/dL (6.4-8.2)
[2019-10-30] MEDS: DOCUSATE 100 MG CAPSULE PO SCH (09:00)
[2019-10-30] MEDS ORDERED: PRENATAL VIT/IRON/FA 1 EACH TABLET ONE (09:20)
[2019-10-30] MEDS ORDERED: ACYCLOVIR 400 MG TABLET ONE ×2 (09:21→21:12)
[2019-10-30] MEDS: PRENATAL VIT/IRON/FA 1 EACH TABLET PO SCH (09:25)
[2019-10-30] MEDS: ACYCLOVIR 400 MG TABLET PO SCH ×2 (09:25→21:15)
[2019-10-30 09:42] LABS: MICROSCOPIC NOT IND
[2019-10-30 21:34] VITALS: BP 116/72
[2019-10-31] MEDS ORDERED: DIPHENHYDRAMINE 25 MG CAPSULE ONE (02:31)
[2019-10-31] MEDS: DIPHENHYDRAMINE 25 MG CAPSULE PO PRN (02:33)
[2019-10-31] MEDS ORDERED: ACYCLOVIR 400 MG TABLET ONE ×2 (07:55→20:48)
[2019-10-31] MEDS ORDERED: PRENATAL VIT/IRON/FA 1 EACH TABLET ONE (07:55)
[2019-10-31] MEDS ORDERED: DOCUSATE 100 MG CAPSULE ONE (07:55)
[2019-10-31] MEDS: ACYCLOVIR 400 MG TABLET PO SCH ×2 (08:59→20:49)
[2019-10-31] MEDS: PRENATAL VIT/IRON/FA 1 EACH TABLET PO SCH (08:59)
[2019-10-31] MEDS: DOCUSATE 100 MG CAPSULE PO SCH (09:00)
[2019-10-31 10:39] VITALS: BP 122/82
[2019-10-31 17:11] LABS: CREATININE,URINE RANDOM 56.6 mg/dL
[2019-11-01] MEDS: CALCIUM CARBONATE 500 MG TAB.CHEW PO PRN (01:05)
[2019-11-01] MEDS ORDERED: CALCIUM CARBONATE 500 MG TAB.CHEW ONE (01:05)
[2019-11-01] MEDS ORDERED: ACYCLOVIR 400 MG TABLET ONE ×2 (08:48→20:59)
[2019-11-01] MEDS ORDERED: DOCUSATE 100 MG CAPSULE ONE (08:48)
[2019-11-01] MEDS ORDERED: PRENATAL VIT/IRON/FA 1 EACH TABLET ONE (08:48)
[2019-11-01] MEDS: DOCUSATE 100 MG CAPSULE PO SCH (09:04)
[2019-11-01] MEDS: PRENATAL VIT/IRON/FA 1 EACH TABLET PO SCH (09:04)
[2019-11-01] MEDS: ACYCLOVIR 400 MG TABLET PO SCH ×2 (09:05→21:04)
[2019-11-01 09:07] VITALS: BP 124/72
[2019-11-02 08:32] VITALS: BP 118/94
[2019-11-02] MEDS: DOCUSATE 100 MG CAPSULE PO SCH (09:00)
[2019-11-02] MEDS ORDERED: PRENATAL VIT/IRON/FA 1 EACH TABLET ONE (09:03)
[2019-11-02] MEDS ORDERED: ACYCLOVIR 400 MG TABLET ONE ×2 (09:03→21:07)
[2019-11-02] MEDS ORDERED: DOCUSATE 100 MG CAPSULE ONE (09:03)
[2019-11-02] MEDS: ACYCLOVIR 400 MG TABLET PO SCH ×2 (09:34→21:11)
[2019-11-02] MEDS: PRENATAL VIT/IRON/FA 1 EACH TABLET PO SCH (09:34)
[2019-11-03 08:30] VITALS: BP 114/72
[2019-11-03] MEDS: DOCUSATE 100 MG CAPSULE PO SCH (09:00)
[2019-11-03] MEDS ORDERED: PRENATAL VIT/IRON/FA 1 EACH TABLET ONE (09:02)
[2019-11-03] MEDS ORDERED: ACYCLOVIR 400 MG TABLET ONE ×2 (09:02→20:39)
[2019-11-03] MEDS: PRENATAL VIT/IRON/FA 1 EACH TABLET PO SCH (09:04)
[2019-11-03] MEDS: ACYCLOVIR 400 MG TABLET PO SCH ×2 (09:04→20:40)
[2019-11-03 13:26] LABS: ANA SCREEN POSITIVE (Negative); ANA TITER 1:40; ANTI-NUCLEAR ANTIBODY PATTERN NUCLEOLAR
[2019-11-03] MEDS ORDERED: DIPHENHYDRAMINE 25 MG CAPSULE ONE (22:02)
[2019-11-03] MEDS: DIPHENHYDRAMINE 25 MG CAPSULE PO PRN (22:04)
[2019-11-04 08:27] LABS: BASOPHILS # (AUTO) 0.04 x10^3/uL (0-0.1); BASOPHILS % (AUTO) 1 % (0-1); EOSINOPHILS % (AUTO) 1 % (1-7); LYMPHOCYTES # (AUTO) 1.92 x10^3/uL (1-3.4); LYMPHOCYTES % (AUTO) 27 % (22-44); MD NO; MEAN CORPUSCULAR HEMOGLOBIN 33.7 pg (27.0-34.8); MEAN CORPUSCULAR HGB CONC 33.5 g/dL (32.4-35.8); MEAN CORPUSCULAR VOLUME 100.5 fL (80-100); MEAN PLATELET VOLUME 8.9 fL (7.4-10.4); MONOCYTES # (AUTO) 0.44 x10^3/uL (0.2-0.8); MONOCYTES % (AUTO) 6 % (2-9); NEUTROPHILS # (AUTO) 4.64 x10^3/uL (1.8-6.8); NEUTROPHILS % (AUTO) 65 % (42-75); PLATELET COUNT 149 x10^3/uL (130-400); RED BLOOD COUNT 4.15 x10^6/uL (3.82-5.3); RED CELL DISTRIBUTION WIDTH 13.1 % (9.6-15.2)
[2019-11-04 08:40] LABS: ALANINE AMINOTRANSFERASE 27 U/L (12-78); ANION GAP 7 mmol/L (5-15); CALCIUM 8.9 mg/dL (8.5-10.1); CHLORIDE 107 mmol/L (98-107); CREATININE 0.65 mg/dL (0.55-1.02)
[2019-11-04 08:42] LABS: ALKALINE PHOSPHATASE 90 U/L (45-117); BILIRUBIN,TOTAL 0.2 mg/dL (0.2-1.0)
[2019-11-04] MEDS ORDERED: ACYCLOVIR 400 MG TABLET ONE ×2 (09:35→20:23)
[2019-11-04] MEDS ORDERED: PRENATAL VIT/IRON/FA 1 EACH TABLET ONE (09:35)
[2019-11-04] MEDS: ACYCLOVIR 400 MG TABLET PO SCH ×2 (09:42→21:01)
[2019-11-04] MEDS: PRENATAL VIT/IRON/FA 1 EACH TABLET PO SCH (09:42)
[2019-11-04 21:03] VITALS: BP 124/83
[2019-11-05] MEDS ORDERED: PRENATAL VIT/IRON/FA 1 EACH TABLET ONE (11:12)
[2019-11-05] MEDS ORDERED: ACYCLOVIR 400 MG TABLET ONE ×2 (11:12→20:48)
[2019-11-05] MEDS: PRENATAL VIT/IRON/FA 1 EACH TABLET PO SCH (11:14)
[2019-11-05] MEDS: ACYCLOVIR 400 MG TABLET PO SCH ×2 (11:14→20:50)
[2019-11-05 20:00] VITALS: BP 117/74
[2019-11-06] MEDS: DOCUSATE 100 MG CAPSULE PO SCH (09:00)
[2019-11-06] MEDS ORDERED: ACYCLOVIR 400 MG TABLET ONE ×2 (09:23→20:53)
[2019-11-06] MEDS ORDERED: PRENATAL VIT/IRON/FA 1 EACH TABLET ONE (09:23)
[2019-11-06] MEDS: PRENATAL VIT/IRON/FA 1 EACH TABLET PO SCH (09:35)
[2019-11-06] MEDS: ACYCLOVIR 400 MG TABLET PO SCH ×2 (09:35→20:54)
[2019-11-06 09:57] VITALS: BP 124/87
[2019-11-06 19:18] VITALS: BP 119/79
[2019-11-07] MEDS ORDERED: ACYCLOVIR 400 MG TABLET ONE ×2 (08:28→21:17)
[2019-11-07] MEDS ORDERED: PRENATAL VIT/IRON/FA 1 EACH TABLET ONE (08:29)
[2019-11-07] MEDS: DOCUSATE 100 MG CAPSULE PO SCH (09:00)
[2019-11-07] MEDS ORDERED: SODIUM CHLORIDE FLUSH 3ML SYRINGE IVF SCH (09:00)
[2019-11-07] MEDS: PRENATAL VIT/IRON/FA 1 EACH TABLET PO SCH (09:05)
[2019-11-07] MEDS: ACYCLOVIR 400 MG TABLET PO SCH ×2 (09:06→21:19)
[2019-11-07 09:35] VITALS: BP 120/76
[2019-11-07] MEDS ORDERED: DOCUSATE 100 MG CAPSULE PO PRN (22:00)
[2019-11-07] MEDS ORDERED: ACETAMINOPHEN 325 MG TABLET ONE (23:48)
[2019-11-07] MEDS: ACETAMINOPHEN 325 MG TABLET PO PRN (23:51)
[2019-11-08] MEDS ORDERED: ACYCLOVIR 400 MG TABLET ONE ×2 (08:23→21:12)
[2019-11-08] MEDS: ACYCLOVIR 400 MG TABLET PO SCH ×2 (08:25→21:13)
[2019-11-08] MEDS ORDERED: PRENATAL VIT/IRON/FA 1 EACH TABLET ONE (08:25)
[2019-11-08] MEDS: PRENATAL VIT/IRON/FA 1 EACH TABLET PO SCH (08:26)
[2019-11-08] MEDS ORDERED: DOCUSATE 100 MG CAPSULE PO PRN (09:00)
[2019-11-09] MEDS ORDERED: FENTANYL PF 100 MCG/2ML ONE (03:22)
[2019-11-09] MEDS ORDERED: BUPIVACAINE 0.25% ONE (03:23)
[2019-11-09] MEDS ORDERED: PRENATAL VIT/IRON/FA 1 EACH TABLET ONE (07:57)
[2019-11-09] MEDS ORDERED: ACYCLOVIR 400 MG TABLET ONE ×2 (07:57→20:14)
[2019-11-09 07:59] VITALS: BP 124/77
[2019-11-09] MEDS: ACYCLOVIR 400 MG TABLET PO SCH ×2 (08:01→20:57)
[2019-11-09] MEDS: PRENATAL VIT/IRON/FA 1 EACH TABLET PO SCH (08:01)
[2019-11-09] MEDS ORDERED: ACETAMINOPHEN 325 MG TABLET ONE (20:10)
[2019-11-09] MEDS: ACETAMINOPHEN 325 MG TABLET PO PRN (20:11)
[2019-11-09 20:12] VITALS: BP 135/88
[2019-11-10] MEDS ORDERED: PRENATAL VIT/IRON/FA 1 EACH TABLET ONE (08:10)
[2019-11-10] MEDS ORDERED: ACYCLOVIR 400 MG TABLET ONE ×2 (08:10→20:37)
[2019-11-10] MEDS: ACYCLOVIR 400 MG TABLET PO SCH ×2 (08:22→20:45)
[2019-11-10] MEDS: PRENATAL VIT/IRON/FA 1 EACH TABLET PO SCH (08:23)
[2019-11-10 08:44] VITALS: BP 128/66
[2019-11-11 05:38] LABS: BASOPHILS # (AUTO) 0.03 x10^3/uL (0-0.1); BASOPHILS % (AUTO) 0 % (0-1); EOSINOPHILS # (AUTO) 0.12 x10^3/uL (0-0.4); EOSINOPHILS % (AUTO) 2 % (1-7); LYMPHOCYTES # (AUTO) 2.59 x10^3/uL (1-3.4); LYMPHOCYTES % (AUTO) 32 % (22-44); MD NO; MEAN CORPUSCULAR HEMOGLOBIN 34.4 pg (27.0-34.8); MEAN CORPUSCULAR HGB CONC 33.4 g/dL (32.4-35.8); MEAN CORPUSCULAR VOLUME 103.1 fL (80-100); MEAN PLATELET VOLUME 9.7 fL (7.4-10.4); MONOCYTES # (AUTO) 0.52 x10^3/uL (0.2-0.8); MONOCYTES % (AUTO) 6 % (2-9); NEUTROPHILS # (AUTO) 4.79 x10^3/uL (1.8-6.8); NEUTROPHILS % (AUTO) 60 % (42-75); PLATELET COUNT 149 x10^3/uL (130-400); RED BLOOD COUNT 3.96 x10^6/uL (3.82-5.3); RED CELL DISTRIBUTION WIDTH 12.8 % (9.6-15.2)
[2019-11-11 05:49] LABS: ALANINE AMINOTRANSFERASE 21 U/L (12-78); ALBUMIN 2.8 g/dL (3.4-5.0); ANION GAP 7 mmol/L (5-15); CALCIUM 8.5 mg/dL (8.5-10.1); CHLORIDE 108 mmol/L (98-107); CREATININE 0.63 mg/dL (0.55-1.02)
[2019-11-11 05:52] LABS: ALKALINE PHOSPHATASE 81 U/L (45-117); TOTAL PROTEIN 6.6 g/dL (6.4-8.2)
[2019-11-11 05:54] LABS: BILIRUBIN,TOTAL < 0.1 mg/dL (0.2-1.0)
[2019-11-11] MEDS ORDERED: PRENATAL VIT/IRON/FA 1 EACH TABLET ONE (07:11)
[2019-11-11] MEDS ORDERED: ACYCLOVIR 400 MG TABLET ONE ×3 (07:12→21:54)
[2019-11-11] MEDS: PRENATAL VIT/IRON/FA 1 EACH TABLET PO SCH (10:04)
[2019-11-11] MEDS: ACYCLOVIR 400 MG TABLET PO SCH ×2 (10:05→21:57)
[2019-11-11 10:32] VITALS: BP 128/75
[2019-11-11 18:50] VITALS: BP 127/77
[2019-11-11] MEDS ORDERED: DIPHENHYDRAMINE 25 MG CAPSULE ONE (21:54)
[2019-11-12] MEDS: ACYCLOVIR 400 MG TABLET PO SCH ×2 (09:14→20:11)
[2019-11-12] MEDS ORDERED: PRENATAL VIT/IRON/FA 1 EACH TABLET ONE (09:22)
[2019-11-12] MEDS: PRENATAL VIT/IRON/FA 1 EACH TABLET PO SCH (09:24)
[2019-11-12] MEDS ORDERED: ACYCLOVIR 400 MG TABLET ONE (20:09)
[2019-11-12 20:12] VITALS: BP 115/79
[2019-11-13] MEDS ORDERED: PRENATAL VIT/IRON/FA 1 EACH TABLET ONE (08:51)
[2019-11-13] MEDS ORDERED: ACYCLOVIR 400 MG TABLET ONE ×2 (08:52→19:59)
[2019-11-13] MEDS: PRENATAL VIT/IRON/FA 1 EACH TABLET PO SCH (09:34)
[2019-11-13] MEDS: ACYCLOVIR 400 MG TABLET PO SCH ×2 (09:34→20:01)
[2019-11-13 19:36] VITALS: BP 124/75
[2019-11-14] MEDS ORDERED: PRENATAL VIT/IRON/FA 1 EACH TABLET ONE (09:44)
[2019-11-14] MEDS ORDERED: ACYCLOVIR 400 MG TABLET ONE ×3 (09:44→21:11)
[2019-11-14] MEDS: ACYCLOVIR 400 MG TABLET PO SCH ×2 (09:46→20:46)
[2019-11-14] MEDS: PRENATAL VIT/IRON/FA 1 EACH TABLET PO SCH (09:46)
[2019-11-14 19:33] VITALS: BP 120/75
[2019-11-14] MEDS ORDERED: DOCUSATE 100 MG CAPSULE ONE (21:11)
[2019-11-15] MEDS ORDERED: ACYCLOVIR 400 MG TABLET ONE ×2 (07:45→20:45)
[2019-11-15] MEDS ORDERED: PRENATAL VIT/IRON/FA 1 EACH TABLET ONE (07:46)
[2019-11-15] MEDS: PRENATAL VIT/IRON/FA 1 EACH TABLET PO SCH (09:10)
[2019-11-15] MEDS: ACYCLOVIR 400 MG TABLET PO SCH ×2 (09:11→20:54)
[2019-11-15 09:24] VITALS: BP 118/76
[2019-11-15 21:00] VITALS: BP 131/90
[2019-11-16] MEDS ORDERED: ACYCLOVIR 400 MG TABLET ONE ×2 (08:40→20:27)
[2019-11-16] MEDS ORDERED: PRENATAL VIT/IRON/FA 1 EACH TABLET ONE (08:40)
[2019-11-16] MEDS: ACYCLOVIR 400 MG TABLET PO SCH ×2 (08:44→20:28)
[2019-11-16] MEDS: PRENATAL VIT/IRON/FA 1 EACH TABLET PO SCH (08:44)
[2019-11-16 08:45] VITALS: BP 121/76
[2019-11-16 19:41] VITALS: BP 126/82
[2019-11-17] MEDS ORDERED: PRENATAL VIT/IRON/FA 1 EACH TABLET ONE (08:43)
[2019-11-17] MEDS ORDERED: ACYCLOVIR 400 MG TABLET ONE ×2 (08:44→20:09)
[2019-11-17] MEDS: PRENATAL VIT/IRON/FA 1 EACH TABLET PO SCH (08:47)
[2019-11-17] MEDS: ACYCLOVIR 400 MG TABLET PO SCH ×2 (08:47→20:11)
[2019-11-17 08:53] VITALS: BP 116/70
[2019-11-17 20:13] VITALS: BP 135/85
[2019-11-18 08:30] VITALS: BP 128/78
[2019-11-18 08:33] LABS: BASOPHILS # (AUTO) 0.04 x10^3/uL (0-0.1); BASOPHILS % (AUTO) 1 % (0-1); EOSINOPHILS # (AUTO) 0.11 x10^3/uL (0-0.4); EOSINOPHILS % (AUTO) 2 % (1-7); LYMPHOCYTES # (AUTO) 1.89 x10^3/uL (1-3.4); LYMPHOCYTES % (AUTO) 28 % (22-44); MD NO; MEAN CORPUSCULAR HEMOGLOBIN 33.4 pg (27.0-34.8); MEAN CORPUSCULAR HGB CONC 33.3 g/dL (32.4-35.8); MEAN CORPUSCULAR VOLUME 100.3 fL (80-100); MEAN PLATELET VOLUME 8.5 fL (7.4-10.4); MONOCYTES # (AUTO) 0.46 x10^3/uL (0.2-0.8); MONOCYTES % (AUTO) 7 % (2-9); NEUTROPHILS # (AUTO) 4.33 x10^3/uL (1.8-6.8); NEUTROPHILS % (AUTO) 63 % (42-75); PLATELET COUNT 164 x10^3/uL (130-400); RED CELL DISTRIBUTION WIDTH 13.2 % (9.6-15.2)
[2019-11-18 08:45] LABS: ALANINE AMINOTRANSFERASE 18 U/L (12-78); ALBUMIN 2.8 g/dL (3.4-5.0); ANION GAP 6 mmol/L (5-15); CALCIUM 8.1 mg/dL (8.5-10.1); CHLORIDE 108 mmol/L (98-107); CREATININE 0.67 mg/dL (0.55-1.02)
[2019-11-18 08:47] LABS: ALKALINE PHOSPHATASE 84 U/L (45-117); BILIRUBIN,TOTAL 0.2 mg/dL (0.2-1.0); TOTAL PROTEIN 6.3 g/dL (6.4-8.2)
[2019-11-18] MEDS ORDERED: PRENATAL VIT/IRON/FA 1 EACH TABLET ONE (11:01)
[2019-11-18] MEDS ORDERED: ACYCLOVIR 400 MG TABLET ONE ×2 (11:01→20:25)
[2019-11-18] MEDS: ACYCLOVIR 400 MG TABLET PO SCH ×2 (11:03→20:30)
[2019-11-18] MEDS: PRENATAL VIT/IRON/FA 1 EACH TABLET PO SCH (11:04)
[2019-11-18 19:10] VITALS: BP 131/87
[2019-11-19] MEDS ORDERED: PRENATAL VIT/IRON/FA 1 EACH TABLET ONE (08:58)
[2019-11-19] MEDS ORDERED: ACYCLOVIR 400 MG TABLET ONE ×2 (08:58→20:54)
[2019-11-19] MEDS: PRENATAL VIT/IRON/FA 1 EACH TABLET PO SCH (09:21)
[2019-11-19] MEDS: ACYCLOVIR 400 MG TABLET PO SCH ×2 (09:21→20:58)
[2019-11-19 11:22] LABS: MICROSCOPIC NOT IND
[2019-11-19 11:31] LABS: CULTURE INDICATED? NO
[2019-11-19 14:11] LABS: CLUE CELLS NONE SEEN (NONE SEEN); WET PREP WBCS FEW (FEW)
[2019-11-19] MEDS ORDERED: DIPH,PERTUSS(ACELL),TET VAC/PF NC IM-VACC ONE (20:30)
[2019-11-20] MEDS ORDERED: ACYCLOVIR 400 MG TABLET ONE ×2 (08:31→21:03)
[2019-11-20] MEDS ORDERED: PRENATAL VIT/IRON/FA 1 EACH TABLET ONE (08:31)
[2019-11-20] MEDS: ACYCLOVIR 400 MG TABLET PO SCH ×2 (08:33→21:20)
[2019-11-20] MEDS: PRENATAL VIT/IRON/FA 1 EACH TABLET PO SCH (08:33)
[2019-11-20] MEDS ORDERED: DIPH,PERTUSS(ACELL),TET VAC/PF NC IM-VACC ONE (08:40)
[2019-11-21 08:34] VITALS: BP 115/63
[2019-11-21] MEDS ORDERED: ACYCLOVIR 400 MG TABLET ONE ×2 (09:20→21:27)
[2019-11-21] MEDS ORDERED: PRENATAL VIT/IRON/FA 1 EACH TABLET ONE (09:20)
[2019-11-21] MEDS: PRENATAL VIT/IRON/FA 1 EACH TABLET PO SCH (09:22)
[2019-11-21] MEDS: ACYCLOVIR 400 MG TABLET PO SCH ×2 (09:23→21:28)
[2019-11-21 19:30] VITALS: BP 137/82
[2019-11-22 08:09] VITALS: BP 129/78
[2019-11-22] MEDS ORDERED: PRENATAL VIT/IRON/FA 1 EACH TABLET ONE (09:04)
[2019-11-22] MEDS ORDERED: ACYCLOVIR 400 MG TABLET ONE ×2 (09:05→20:08)
[2019-11-22] MEDS: ACYCLOVIR 400 MG TABLET PO SCH ×2 (09:19→20:11)
[2019-11-22] MEDS: PRENATAL VIT/IRON/FA 1 EACH TABLET PO SCH (09:19)
[2019-11-22 20:10] VITALS: BP 127/58
[2019-11-23] MEDS ORDERED: ACYCLOVIR 400 MG TABLET ONE ×2 (08:28→20:20)
[2019-11-23] MEDS ORDERED: PRENATAL VIT/IRON/FA 1 EACH TABLET ONE (08:30)
[2019-11-23 08:43] VITALS: BP 131/78
[2019-11-23] MEDS: PRENATAL VIT/IRON/FA 1 EACH TABLET PO SCH (08:43)
[2019-11-23] MEDS: ACYCLOVIR 400 MG TABLET PO SCH ×2 (08:43→20:29)
[2019-11-23 19:17] VITALS: BP 126/79
[2019-11-24] MEDS ORDERED: ACYCLOVIR 400 MG TABLET ONE ×2 (08:44→20:53)
[2019-11-24] MEDS ORDERED: PRENATAL VIT/IRON/FA 1 EACH TABLET ONE (08:44)
[2019-11-24] MEDS: PRENATAL VIT/IRON/FA 1 EACH TABLET PO SCH (08:46)
[2019-11-24] MEDS: ACYCLOVIR 400 MG TABLET PO SCH ×2 (08:46→20:55)
[2019-11-25 05:39] LABS: BASOPHILS # (AUTO) 0.03 x10^3/uL (0-0.1); BASOPHILS % (AUTO) 0 % (0-1); EOSINOPHILS # (AUTO) 0.14 x10^3/uL (0-0.4); EOSINOPHILS % (AUTO) 2 % (1-7); LYMPHOCYTES # (AUTO) 2.59 x10^3/uL (1-3.4); LYMPHOCYTES % (AUTO) 32 % (22-44); MD NO; MEAN CORPUSCULAR HEMOGLOBIN 33.8 pg (27.0-34.8); MEAN CORPUSCULAR HGB CONC 33.7 g/dL (32.4-35.8); MEAN CORPUSCULAR VOLUME 100.3 fL (80-100); MEAN PLATELET VOLUME 9.1 fL (7.4-10.4); MONOCYTES # (AUTO) 0.58 x10^3/uL (0.2-0.8); MONOCYTES % (AUTO) 7 % (2-9); NEUTROPHILS # (AUTO) 4.73 x10^3/uL (1.8-6.8); NEUTROPHILS % (AUTO) 59 % (42-75); PLATELET COUNT 172 x10^3/uL (130-400); RED BLOOD COUNT 3.93 x10^6/uL (3.82-5.3); RED CELL DISTRIBUTION WIDTH 13.2 % (9.6-15.2)
[2019-11-25 05:53] LABS: ALANINE AMINOTRANSFERASE 17 U/L (12-78); ALBUMIN 2.6 g/dL (3.4-5.0); ANION GAP 4 mmol/L (5-15); CALCIUM 8.7 mg/dL (8.5-10.1); CHLORIDE 110 mmol/L (98-107); CREATININE 0.62 mg/dL (0.55-1.02)
[2019-11-25 05:55] LABS: ALKALINE PHOSPHATASE 85 U/L (45-117); BILIRUBIN,TOTAL 0.2 mg/dL (0.2-1.0); TOTAL PROTEIN 6.2 g/dL (6.4-8.2)
[2019-11-25] MEDS ORDERED: ACYCLOVIR 400 MG TABLET ONE ×2 (09:05→21:01)
[2019-11-25] MEDS ORDERED: DOCUSATE 100 MG CAPSULE ONE (09:05)
[2019-11-25] MEDS ORDERED: PRENATAL VIT/IRON/FA 1 EACH TABLET ONE (09:05)
[2019-11-25] MEDS: PRENATAL VIT/IRON/FA 1 EACH TABLET PO SCH (09:07)
[2019-11-25] MEDS: ACYCLOVIR 400 MG TABLET PO SCH ×2 (09:07→21:03)
[2019-11-25] MEDS ORDERED: KETOROLAC 30 MG/1 ML ONE (11:42)
[2019-11-26] MEDS ORDERED: ACYCLOVIR 400 MG TABLET ONE ×2 (07:54→20:43)
[2019-11-26] MEDS ORDERED: PRENATAL VIT/IRON/FA 1 EACH TABLET ONE (07:54)
[2019-11-26] MEDS: PRENATAL VIT/IRON/FA 1 EACH TABLET PO SCH (09:00)
[2019-11-26 20:00] VITALS: BP 127/80
[2019-11-26] MEDS: ACYCLOVIR 400 MG TABLET PO SCH ×2 (20:44→21:00)
[2019-11-27 09:08] VITALS: BP 138/91
[2019-11-27] MEDS ORDERED: ACYCLOVIR 400 MG TABLET ONE ×2 (09:16→21:54)
[2019-11-27] MEDS ORDERED: PRENATAL VIT/IRON/FA 1 EACH TABLET ONE (09:16)
[2019-11-27] MEDS: PRENATAL VIT/IRON/FA 1 EACH TABLET PO SCH (09:18)
[2019-11-27] MEDS: ACYCLOVIR 400 MG TABLET PO SCH ×2 (09:18→21:55)
[2019-11-28] MEDS ORDERED: PRENATAL VIT/IRON/FA 1 EACH TABLET ONE (08:50)
[2019-11-28] MEDS ORDERED: ACYCLOVIR 400 MG TABLET ONE ×2 (08:51→20:57)
[2019-11-28] MEDS: PRENATAL VIT/IRON/FA 1 EACH TABLET PO SCH (09:25)
[2019-11-28] MEDS: ACYCLOVIR 400 MG TABLET PO SCH ×2 (09:25→20:59)
[2019-11-28] MEDS ORDERED: ACETAMINOPHEN 325 MG TABLET ONE (22:15)
[2019-11-28] MEDS: ACETAMINOPHEN 325 MG TABLET PO PRN (22:18)
[2019-11-28 22:43] LABS: BASOPHILS # (AUTO) 0.03 x10^3/uL (0-0.1); BASOPHILS % (AUTO) 0 % (0-1); EOSINOPHILS # (AUTO) 0.09 x10^3/uL (0-0.4); EOSINOPHILS % (AUTO) 1 % (1-7); LYMPHOCYTES # (AUTO) 2.82 x10^3/uL (1-3.4); LYMPHOCYTES % (AUTO) 31 % (22-44); MD NO; MEAN CORPUSCULAR HEMOGLOBIN 33.8 pg (27.0-34.8); MEAN CORPUSCULAR HGB CONC 33.7 g/dL (32.4-35.8); MEAN CORPUSCULAR VOLUME 100.5 fL (80-100); MONOCYTES # (AUTO) 0.59 x10^3/uL (0.2-0.8); MONOCYTES % (AUTO) 6 % (2-9); NEUTROPHILS # (AUTO) 5.68 x10^3/uL (1.8-6.8); NEUTROPHILS % (AUTO) 62 % (42-75); PLATELET COUNT 174 x10^3/uL (130-400); RED BLOOD COUNT 3.99 x10^6/uL (3.82-5.3); RED CELL DISTRIBUTION WIDTH 12.9 % (9.6-15.2)
[2019-11-28] MEDS ORDERED: FENTANYL PF 100 MCG/2ML ONE (22:43)
[2019-11-28] MEDS ORDERED: OXYTOCIN 30U/ 0.9% NaCL 500ML 500 ML ONE (22:44)
[2019-11-28] MEDS ORDERED: METOCLOPRAMIDE 5 MG/ML, 2ML ONE (22:50)
[2019-11-28] MEDS ORDERED: SODIUM CITRATE/CITRIC ACID 30 ML UDC ONE (22:50)
[2019-11-28] MEDS ORDERED: MISOPROSTOL 200 MCG TABLET ONE (22:52)
[2019-11-28] MEDS ORDERED: NEWBORN KIT ONE (22:52)
[2019-11-28] MEDS ORDERED: LACTATED RINGERS 1,000 ML IVBOLUS ONE (23:00)
[2019-11-28] MEDS ORDERED: SODIUM CITRATE/CITRIC ACID 30 ML UDC PO ONE (23:00)
[2019-11-28] MEDS ORDERED: METOCLOPRAMIDE 5 MG/ML, 2ML IV ONE (23:00)
[2019-11-28] MEDS ORDERED: CEFAZOLIN 1,000 MG ONE ×2 (23:09)
[2019-11-28] MEDS ORDERED: OXYTOCIN 10 UNITS/ML, 1ML ONE ×3 (23:09)
[2019-11-28] MEDS ORDERED: MIDAZOLAM 1 MG/ML, 2ML ONE (23:55)
[2019-11-29] MEDS ORDERED: KETOROLAC 30 MG/1 ML ONE (00:21)
[2019-11-29] MEDS: LACTATED RINGERS 1,000 ML IV SCH ×6 (00:48→20:48)
[2019-11-29] MEDS ORDERED: ACETAMINOPHEN 325 MG TABLET PO PRN ×2 (01:00)
[2019-11-29] MEDS ORDERED: EPHEDRINE 50 MG/ML, 1ML IVPush PRN (01:00)
[2019-11-29] MEDS ORDERED: MISOPROSTOL 200 MCG TABLET PR PRN (01:00)
[2019-11-29] MEDS ORDERED: OXYcodone IR 5MG TABLET PO PRN (01:00)
[2019-11-29] MEDS ORDERED: DEXAMETHASONE 4 MG/ML, 1ML IV PRN (01:00)
[2019-11-29] MEDS ORDERED: METOCLOPRAMIDE 5 MG/ML, 2ML IV PRN (01:00)
[2019-11-29] MEDS ORDERED: RHOGAM FROM BLOOD BANK 1 NOTE EA IM/IV ONE (01:00)
[2019-11-29] MEDS ORDERED: MORPHINE SULFATE 4 MG/ML, 1ML IVPush PRN (01:00)
[2019-11-29] MEDS ORDERED: morphine SULFATE 10 MG/ML, 1ML IVPush PRN ×2 (01:00)
[2019-11-29] MEDS ORDERED: ONDANSETRON 2MG/ML, 2ML IV PRN ×2 (01:00)
[2019-11-29] MEDS ORDERED: LOPERAMIDE 1 MG/5 ML, 10ML UDC PO ONE (01:00)
[2019-11-29] MEDS ORDERED: PROMETHAZINE 25 MG/ML, 1ML IV PRN (01:00)
[2019-11-29] MEDS ORDERED: CALCIUM CARBONATE 500 MG TAB.CHEW PO PRN (01:00)
[2019-11-29] MEDS ORDERED: LOPERAMIDE 1 MG/5 ML, 10ML UDC PO PRN (01:00)
[2019-11-29] MEDS ORDERED: DIPHENHYDRAMINE 50 MG/ML, 1ML IVPush PRN (01:00)
[2019-11-29] MEDS ORDERED: MEASLES,MUMPS&RUBELLA VACC/PF 0.5 ML SQ-VACC PRN (01:00)
[2019-11-29] MEDS ORDERED: OXYcodone 5 MG/5 ML ORAL.SOL UDC PO PRN (01:00)
[2019-11-29] MEDS ORDERED: FENTANYL PF 100 MCG/2ML IV PRN (01:00)
[2019-11-29] MEDS ORDERED: LABETALOL 5MG/ML, 20ML IV PRN (01:00)
[2019-11-29] MEDS: OXYTOCIN 30U/ 0.9% NaCL 500ML 500 ML IV SCH ×3 (01:11→20:48)
[2019-11-29] MEDS ORDERED: LOPERAMIDE 2 MG CAPSULE PO ONE (01:30)
[2019-11-29] MEDS ORDERED: OXYcodone 5 MG/5 ML ORAL.SOL UDC ONE (01:36)
[2019-11-29] MEDS ORDERED: ONDANSETRON 2MG/ML, 2ML ONE (01:36)
[2019-11-29 02:19] LABS: CLOSTRIDIUM DIFFICILE ANTIGEN NEGATIVE; CLOSTRIDIUM DIFFICILE TOXIN NEGATIVE (Negative)
[2019-11-29 03:00] VITALS: BP 123/81
[2019-11-29] MEDS: KETOROLAC 30 MG/1 ML IV PRN ×3 (06:08→18:15)
[2019-11-29] MEDS: OXYcodone IR 5MG TABLET PO PRN ×5 (06:11→22:01)
[2019-11-29 07:31] VITALS: BP 121/79
[2019-11-29] MEDS ORDERED: ACYCLOVIR 400 MG TABLET ONE (07:45)
[2019-11-29] MEDS: ACETAMINOPHEN 325 MG TABLET PO PRN ×3 (07:49→22:02)
[2019-11-29] MEDS: ACYCLOVIR 400 MG TABLET PO SCH ×2 (07:50→22:01)
[2019-11-29] MEDS: PRENATAL VIT/IRON/FA 1 EACH TABLET PO SCH (07:50)
[2019-11-29] MEDS: SIMETHICONE 80 MG CHEW TAB PO PRN ×3 (07:50→22:02)
[2019-11-29 08:01] LABS: BASOPHILS # (AUTO) 0.04 x10^3/uL (0-0.1); BASOPHILS % (AUTO) 0 % (0-1); EOSINOPHILS # (AUTO) 0.03 x10^3/uL (0-0.4); EOSINOPHILS % (AUTO) 0 % (1-7); LYMPHOCYTES # (AUTO) 1.58 x10^3/uL (1-3.4); LYMPHOCYTES % (AUTO) 14 % (22-44); MD NO; MEAN CORPUSCULAR HEMOGLOBIN 33.9 pg (27.0-34.8); MEAN CORPUSCULAR HGB CONC 33.6 g/dL (32.4-35.8); MEAN CORPUSCULAR VOLUME 100.9 fL (80-100); MEAN PLATELET VOLUME 8.9 fL (7.4-10.4); MONOCYTES # (AUTO) 0.64 x10^3/uL (0.2-0.8); MONOCYTES % (AUTO) 6 % (2-9); NEUTROPHILS # (AUTO) 9.29 x10^3/uL (1.8-6.8); NEUTROPHILS % (AUTO) 80 % (42-75); PLATELET COUNT 141 x10^3/uL (130-400); RED BLOOD COUNT 3.31 x10^6/uL (3.82-5.3); RED CELL DISTRIBUTION WIDTH 13.2 % (9.6-15.2)
[2019-11-29 12:10] VITALS: BP 113/72
[2019-11-29 15:15] VITALS: BP 97/61
[2019-11-29 15:20] VITALS: BP 128/83
[2019-11-29 19:25] VITALS: BP 128/81
[2019-11-29] MEDS: DOCUSATE 100 MG CAPSULE PO PRN (22:01)
[2019-11-30] MEDS: KETOROLAC 30 MG/1 ML IV PRN (00:05)
[2019-11-30] MEDS: OXYcodone IR 5MG TABLET PO PRN ×3 (05:26→19:48)
[2019-11-30] MEDS: SIMETHICONE 80 MG CHEW TAB PO PRN ×2 (05:26→16:25)
[2019-11-30] MEDS: ACETAMINOPHEN 325 MG TABLET PO PRN (05:27)
[2019-11-30] MEDS: LACTATED RINGERS 1,000 ML IV SCH ×2 (06:48→16:48)
[2019-11-30] MEDS: OXYTOCIN 30U/ 0.9% NaCL 500ML 500 ML IV SCH ×2 (06:48→16:48)
[2019-11-30 07:50] VITALS: BP 146/85
[2019-11-30] MEDS: IBUPROFEN 600 MG TABLET PO PRN ×3 (07:52→21:51)
[2019-11-30] MEDS: PRENATAL VIT/IRON/FA 1 EACH TABLET PO SCH (07:52)
[2019-11-30] MEDS: DOCUSATE 100 MG CAPSULE PO PRN ×2 (07:52→19:48)
[2019-11-30 08:05] VITALS: BP 130/85
[2019-11-30 19:55] VITALS: BP 125/84
[2019-11-30 21:56] VITALS: BP 136/87
[2019-12-01] MEDS: ACETAMINOPHEN 325 MG TABLET PO PRN ×2 (01:12→12:19)
[2019-12-01] MEDS: OXYcodone IR 5MG TABLET PO PRN ×2 (01:15→12:18)
[2019-12-01] MEDS: LACTATED RINGERS 1,000 ML IV SCH ×2 (02:48→12:48)
[2019-12-01] MEDS: OXYTOCIN 30U/ 0.9% NaCL 500ML 500 ML IV SCH ×2 (02:48→12:48)
[2019-12-01] MEDS: IBUPROFEN 600 MG TABLET PO PRN ×2 (04:46→10:27)
[2019-12-01 04:48] VITALS: BP 126/84
[2019-12-01 07:26] VITALS: BP 128/84
[2019-12-01] MEDS: PRENATAL VIT/IRON/FA 1 EACH TABLET PO SCH (07:39)
[2019-12-01] MEDS: DOCUSATE 100 MG CAPSULE PO PRN (07:40)
[2019-12-01] MEDS ORDERED: IBUP-1222 PO (11:13)
[2019-12-01] MEDS ORDERED: OXYC5CAP2 PO (11:14)
== END 2019-12-01 16:00 | disposition home or self-care (01) | DRG 784 ==
LOC: LDIP 11:36 → 2NE 10-08 10:00 → LDIP 10-15 19:32 → 2NW 11-29 02:45
PROVIDERS: ADMIT Obstetrics & Gynecology; ATTEND Obstetrics & Gynecology
PROC: 10D00Z1 Extraction of Products of Conception, Low, Open Approach (ICD-10-PCS; principal; 2019-09-28)
PROC: 0UT70ZZ Resection of Bilateral Fallopian Tubes, Open Approach (ICD-10-PCS; 2019-09-28)
DX: O13.4 Gestational [pregnancy-induced] hypertension without significant proteinuria, complicating childbirth (principal); O41.02X0 Oligohydramnios, second trimester, not applicable or unspecified; O36.5930 Maternal care for other known or suspected poor fetal growth, third trimester, not applicable or unspecified; O34.211 Maternal care for low transverse scar from previous cesarean delivery; O24.429 Gestational diabetes mellitus in childbirth, unspecified control; O76 Abnormality in fetal heart rate and rhythm complicating labor and delivery; O77.0 Labor and delivery complicated by meconium in amniotic fluid; O99.344 Other mental disorders complicating childbirth; F43.23 Adjustment disorder with mixed anxiety and depressed mood; Z37.0 Single live birth; Z3A.24 24 weeks gestation of pregnancy
CPT/HCPCS: 36415; 76801; 76805; 76815; 76819; 80053; 81003; 81050; 82248; 82570; 82803; 82947; 82950; 82951; 82962; 83516; 84112; 84156; 84443; 84550; 85025; 86038; 86039; 86160; 86225; 86235; 86255; 86376; 86592; 86850; 86900; 86923; 87081; 87147; 87210; 87324; 87808; 88302; 88307; 89060; 90715; G0378; J0690; J0702; J1885; J2250; J2405; J3010; J2590; J2765; J7120; Q0114; Q0163

== ENCOUNTER 2020-04-22 11:14 | Emergency (ER) | payer OTHER ==
[~2020-04-22] VITALS: Ht 172.7 cm; Wt 69.0 kg
[~2020-04-22 11:14] MED LIST changes: +DOCO100C PO; +OXYC5CAP2 PO
--- NOTE | 2020-04-22 12:08 | NUR ---
Pt here with parent, states stiffness in neck and VEGA. N/V strting this morning. Photophobic.
[2020-04-22] MEDS ORDERED: HYDROmorphone 2 MG/ML, 1ML ONE (12:11)
[2020-04-22] MEDS ORDERED: ONDANSETRON 2MG/ML, 2ML ONE (12:11)
[2020-04-22] MEDS ORDERED: SODIUM CHLORIDE 0.9% 1,000ML IVBOLUS ONE (12:30)
[2020-04-22] MEDS ORDERED: SODIUM CHLORIDE FLUSH 10ML SYR IVF ONE (12:30)
[2020-04-22] MEDS ORDERED: HYDROmorphone 1 MG/ML, 1ML INJ IVPush PRN (12:30)
[2020-04-22] MEDS ORDERED: ONDANSETRON 2MG/ML, 2ML IVPush ONE (12:30)
[2020-04-22 12:36] LABS: BASOPHILS # (AUTO) 0.01 x10^3/uL (0-0.1); BASOPHILS % (AUTO) 0 % (0-1); EOSINOPHILS # (AUTO) 0.02 x10^3/uL (0-0.4); EOSINOPHILS % (AUTO) 0 % (1-7); LYMPHOCYTES # (AUTO) 0.88 x10^3/uL (1-3.4); LYMPHOCYTES % (AUTO) 15 % (22-44); MD NO; MEAN CORPUSCULAR HEMOGLOBIN 32.1 pg (27.0-34.8); MEAN CORPUSCULAR HGB CONC 33.6 g/dL (32.4-35.8); MEAN CORPUSCULAR VOLUME 95.5 fL (80-100); MEAN PLATELET VOLUME 7.8 fL (7.4-10.4); MONOCYTES # (AUTO) 0.28 x10^3/uL (0.2-0.8); MONOCYTES % (AUTO) 5 % (2-9); NEUTROPHILS # (AUTO) 4.88 x10^3/uL (1.8-6.8); NEUTROPHILS % (AUTO) 80 % (42-75); PLATELET COUNT 231 x10^3/uL (130-400); RED BLOOD COUNT 4.68 x10^6/uL (3.82-5.3); RED CELL DISTRIBUTION WIDTH 13.2 % (9.6-15.2)
--- NOTE | 2020-04-22 12:37 | NUR ---
Pt medicated, NS gtt infusing, set up for LP complete. aware.
[2020-04-22 12:40] LABS: ALBUMIN 3.9 g/dL (3.4-5.0); ANION GAP 10 mmol/L (5-15); CHLORIDE 108 mmol/L (98-107)
[2020-04-22 12:44] LABS: ALANINE AMINOTRANSFERASE 16 U/L (12-78); ALKALINE PHOSPHATASE 67 U/L (45-117); BILIRUBIN,TOTAL 0.8 mg/dL (0.2-1.0); CREATININE 0.75 mg/dL (0.55-1.02); TOTAL PROTEIN 7.7 g/dL (6.4-8.2)
--- NOTE | 2020-04-22 13:38 | NUR ---
Pt back froom CT, states pain improvement. Consent signed for LP.
--- NOTE | 2020-04-22 14:07 | NUR ---
pa-c is set up for lp at the bedside. pt is tolerating well thus far
[2020-04-22 14:41] LABS: GLUCOSE, CSF 49 mg/dL (40-80); TOTAL PROTEIN,CSF 56 mg/dL (15-45)
--- NOTE | 2020-04-22 15:08 | NUR ---
Pt resting, denies need for pain intervention. Less photophobic.
--- NOTE | 2020-04-22 15:20 | NUR ---
No need for UA per MD.
--- NOTE | 2020-04-22 16:07 | NUR ---
Pt provided with DC inst. Family at bedside. IV removed.
[2020-04-22 16:08] VITALS: BP 108/67
== END 2020-04-22 16:13 | disposition home or self-care (01) ==
LOC: ED 11:56
DX: G44.209 Tension-type headache, unspecified, not intractable (principal); M25.519 Pain in unspecified shoulder; R11.2 Nausea with vomiting, unspecified; M54.2 Cervicalgia
CPT/HCPCS: 36415; 62270; 70450; 80053; 82945; 83605; 84157; 85025; 87070; 87205; 87252; 89051; 96361; 96374; 96375; 99285; J1170; J2405; J7030